=== PATIENT | female | born 1945 | race Caucasian/White ===

== ENCOUNTER 2024-09-29 14:56 | Emergency (ER) | payer MEDICARE, SELFPAY ==
[2024-09-29 15:10] VITALS: BP 113/72
--- NOTE | 2024-09-29 17:13 | ED.GENMED ---
History of Present Illness
General
Chief Complaint: Fall
Time Seen by Provider: 09/29/24 16:34
History of Present Illness
History of Present Illness:
79-year-old female presents to the emergency department after an unwitnessed fall. Was found by her roommate at approximately 6 AM on the ground. Patient does not recall any details that led to this fall. Arrives with a poorly dressed laceration
to the left forehead. She denies any acute pain at this time.
Review of Systems
Review of Systems
Allergies reviewed?: Yes
All Other Systems: ROS reviewed and negative except as documented in HPI and ROS
Phy Exam
Physical Exam
Physical Exam:
GEN: Well appearing, NAD, WDWN
Eyes: PERRLA, EOMs intact, no scleral icterus
HENT: 2 cm stellate laceration to the left forehead just above the eyebrow; oral mucosa moist, no JVD, no midline cervical spine tenderness.
Lungs: CTAB, no wheezes, rales, rhonchi, normal chest wall excursion
Cardiac: RRR, no M/R/G, no peripheral edema. Radial pulses 2+ bilat
Abdomen: S, NT, ND, NABS, no masses or hepatosplenomegaly
Neuro: AO x 3
MSK: No gross deformity or ecchymosis. No edema. Normal bilateral hip and knee range of motion with no reproduced pain, pelvis stable with no crepitus
Skin: No rashes, petechiae. Normal color, no pallor or jaundice.
Psych: Calm, cooperative, proper hygiene
Course
Orders/Labs/Results
Orders:
Orders
09/29/24 15:[address] [CT Head W/o Iv Contrast] Urgent
Comment:
Reason For Exam: +head strike
09/29/24 17:12
Straight cath- Treatment ONCE
09/29/24 17:24
Complete Blood Count/With Diff Urgent
Comprehensive Metabolic Panel Urgent
09/29/24 17:25
Urinalysis Reflex To Culture Urgent
Date Specimen was Collected: 09/29/24
Time Specimen was Collected: 17:25
Urine Microscopic Reflex Cult Urgent
Urine Culture Urgent
HILDA Source: U
Specimen Description:
Date Specimen was Collected: 09/29/24
Time Specimen was Collected: 17:25
09/29/24 18:16
Fosfomycin [Monurol] 3 gm PO ONCE ONE
09/29/24 18:23
Acetaminophen [Tylenol] 650 mg PO NOW STA
Abnormal Lab Results
09/29/24 09/29/24
17:24 17:25
RBC 3.48 L 10^6/uL
(4.20-5.40)
Hgb 11.6 L g/dL
(12.0-16.0)
Hct 34.2 L %
(37.0-47.0)
MCH 33.3 H pg
(27.0-31.0)
Monocytes % 9.4 H %
(1.7-9.3)
BUN 20 H mg/dl
(7-17)
Glucose 120 H mg/dl
(70-99)
AST 63 H U/L
(14-36)
ALT 55 H U/L
(0-35)
Total Protein 6.2 L g/dl
(6.3-8.2)
Albumin 3.4 L g/dl
(3.5-5.0)
Leukocyte Esterase Rfl 2+ A
(Negative)
Urine WBC (Reflex) 50-60 A /HPF
(0-5)
Urine Bacteria (Reflex) Many A
(Negative)
Urine Yeast Few A
(Negative)
Urine Glucose 3+ A
(Negative)
09/29/24 17:24
09/29/24 17:24
Vital Signs
Initial and Last Documented VS:
Initial Vital Signs
Temp Pulse Resp BP Pulse Ox
98.2 F 82 16 113/72 98
09/29/24 15:10 09/29/24 15:10 09/29/24 15:10 09/29/24 15:10 09/29/24 15:10
Last Documented Vital Signs
Temp Pulse Resp BP Pulse Ox
98.2 F 77 20 134/84 99
09/29/24 15:10 09/29/24 18:00 09/29/24 18:00 09/29/24 18:00 09/29/24 18:00
MDM/Problems Addressed
MDM/Problems Addressed:
Wound was cleansed and redressed with Steri-Strips. CT shows no acute traumatic injury as a result of her fall. Workup reveals suspected UTI which may have caused her fall, will be discharged back to her nursing facility after single dose of
fosfomycin
*Critical Care Note
Total Time (30-74mins, 75-104mins- exclusive of procedures): Not Applicable
ED Attending Note
-
Portions of this chart may have been created with voice recognition software.� Occasional wrong word or��sound alike� substitutions may have occurred due to the inherent limitations of voice recognition software.
Discharge Plan
Departure
Patient Disposition: Home (Routine Discharge)
Date of Disposition: 09/29/24
Time of Disposition: 18:22
Patient with high blood pressure during this ER visit?: No
Discharge Problem:
Unwitnessed fall, Forehead laceration, Urinary tract infection
Instructions: Head Injury in Adults (DC)
Referrals:
Sheldon Amin, [Family Provider] -
Interventions
Interventions:
*Risk Screen - Suicide Last Done: 09/29/24 15:10
*General Assessment Last Done: 09/29/24 17:00
*Neglect/Abuse Screening Last Done: 09/29/24 15:10
*ED COVID-19 Vaccine History Last Done: 09/29/24 17:00
*Nursing Disposition Last Done: 09/29/24 19:44
ED-Musculoskeletal Assessment Last Done: 09/29/24 17:00
ED- Neurological Assessment Last Done: 09/29/24 17:00
ED-Skin Assessment Last Done: 09/29/24 17:00
Discharge Date and Time
Discharge Date/Time: 09/29/24 19:45
Print Language: BULGARIAN
[2024-09-29 17:50] LABS: Urine Albumin Negative (Neg - Trace); Urine Bilirubin Negative (Negative); Urine Character Clear (Clear); Urine Color Yellow; Urine Glucose 3+ (Negative); Urine Ketone Negative (Negative); Urine Leukocyte 2+ (Negative); Urine Nitrite Negative (Negative); Urine Occult Blood Negative (Negative); Urine Specific Gravity 1.015 (<1.030); Urine Urobilinogen Negative (Neg - 1+)
[2024-09-29 17:50] LABS: % Eosinophils 1.6 % (0-6); % Immature Granulocytes 0.3 % (0-0.5); % Lymphocytes 21.5 % (20.5-51.1); % Monocytes 9.4 % (1.7-9.3); % Neutrophils 66.2 % (42.2-75.2); Absolute Basophils 0.1 10^3/uL (0-0.2); Absolute Eosinophils 0.1 10^3/uL (0-0.7); Absolute Lymphocytes 1.3 10^3/uL (1.2-3.4); Absolute Monocytes 0.6 10^3/uL (0.1-0.6); Hematocrit 34.2 % (37.0-47.0); Hemoglobin 11.6 g/dL (12.0-16.0); Mean Corp Hgb Conc. 33.9 g/dL (33.0-37.0); Mean Corpuscular Hgb 33.3 pg (27.0-31.0); Mean Corpuscular Volume 98.3 fL (81.0-99.0); Nucleated Red Blood Cells % 0 %; Platelet Count 324 10^3/uL (130-400); Red Blood Cell Count 3.48 10^6/uL (4.20-5.40); Red Cell Dist. Width 13.7 % (11.5-14.5); White Blood Cell Count 6.1 10^3/uL (4.8-10.8)
[2024-09-29 18:00] VITALS: BP 134/84
[2024-09-29 18:02] LABS: ALT (SGPT) 55 U/L (0-35); AST (SGOT) 63 U/L (14-36); Albumin 3.4 g/dl (3.5-5.0); Alkaline Phosphatase 64 U/L (38-126); Blood Urea Nitrogen 20 mg/dl (7-17); Calcium 9.1 mg/dl (8.4-10.2); Carbon Dioxide 22 mmol/L (22-30); Chloride 102 mmol/L (98-107); Glucose 120 mg/dl (70-99); Potassium 3.7 mmol/L (3.5-5.1); Sodium 137 mmol/L (135-145); Total Bilirubin 0.6 mg/dl (0.2-1.3); Total Protein 6.2 g/dl (6.3-8.2); eGFR > 60.00
[2024-09-29 18:02] LABS: Urine Squamous Cell 0-2 /LPF (Few)
[2024-09-29 18:03] LABS: Urine Bacteria Many (Negative); Urine Red Blood Cell 0-2 /HPF (0-2); Urine White Cell 50-60 /HPF (0-5); Urine Yeast Few (Negative)
[2024-09-29] MEDS: TYLENOL 650 MG PO (18:41)
[2024-09-29] MEDS: MONUROL 3 GM PO (18:42)
== END 2024-09-29 19:45 | disposition home or self-care (01) ==
LOC: EMR 14:56
PROVIDERS: Physician Assistant; EMERGENCY PHYSICIAN Emergency Medicine; FAMILY PHYSICIAN Family Medicine
DX: S01.81XA Laceration without foreign body of other part of head, initial encounter (principal); N39.0 Urinary tract infection, site not specified; W19.XXXA Unspecified fall, initial encounter
CPT/HCPCS: 99284; 70450; 80053; 81003; 81015; 85025; 87077; 87086

== ENCOUNTER 2024-11-03 02:50 | Inpatient (IN) | payer MEDICARE, SELFPAY ==
[2024-11-02 21:06] VITALS: BMI 29.9
--- NOTE | 2024-11-02 21:06 | ED.SKININJ ---
HPI-Injury
<Vickey Santizo PA-C - Last Filed: 11/04/24 16:10>
General
Chief Complaint: Skin Surface Trauma
Source: patient
Exam Limitations: none
Time Seen by Provider: 11/02/24 20:58
History of Present Illness-Injury
Initial Injury comments:
79-year-old female presents via EMS from group home facility. Patient was being transferred using a Lindsey lift and her leg got caught on an object. Facility noted a large laceration to the right lateral calf. She is on aspirin but no other
thinners. She has a history of cognitive dysfunction. She denies any pain.
Phy Exam
<Vickey Santizo PA-C - Last Filed: 11/04/24 16:10>
Physical Exam
Physical Exam:
General: Well-appearing female no acute respiratory distress
Skin: Large laceration lateral aspect right lower leg measuring about 10 cm. This is involving the skin and subcutaneous tissue. The muscle fascia is visible on the lateral aspect of the calf however the muscle fascia is not injured.
Neurologic: Alert and oriented to person only. Good sensation right leg
Musculoskeletal exam: No deformities. Good range of motion right knee and ankle
Course
<Vickey Santizo PA-C - Last Filed: 11/04/24 16:10>
Orders/Labs/Results
Orders:
Orders
11/02/24 22:15
CT Head W/o Iv Contrast Urgent
Comment:
Reason For Exam: change of mental status
Urinalysis Reflex To Culture Urgent
Date Specimen was Collected: 11/03/24
Time Specimen was Collected: 00:11
11/02/24 23:12
Complete Blood Count/With Diff Urgent
Comprehensive Metabolic Panel Urgent
NT-proBNP Urgent
TSH Reflex To Free T4 Urgent
Comment: ADD ON
11/03/24 00:13
Urine Microscopic Reflex Cult Urgent
Urine Culture Urgent
HILDA Source: U
Specimen Description:
Date Specimen was Collected: 11/03/24
Time Specimen was Collected: 00:11
11/03/24 01:14
Add On- LAB Urgent
Tests Added?: tsh reflex fT4
11/03/24 01:22
CefTRIAXone [Rocephin] 1,000 mg IV NOW STA
11/03/24 02:29
Admit/Transfer Patient As Directed
Co-Sign Provider:
Level of Care: Inpatient admission
Assign to:: Telemetry
Physician / Group: hospitalist
Diagnosis: failure to thrive
Reason for Telemetry: Other
Other Reason for Telemetry: h/o bradycardia
Date to Stop Telemetry: 11/05/24
Time to Stop Telemetry: 11:00
Reason for Hospitalization: failure to thrive
Expected length of stay greater than two midnights?: Yes
ELOS- Estimated Length of Stay in days: 2
I certify the patient meets the requirements for IP care: Yes
PRN Pain Medication Management As Directed
May give lesser potent ordered pain med per pt: Yes
preference::
Protocol:: Medication orders for pain may be administered in a
manner that supports deferring to patient preference
when the pt is:
- Requesting an ordered lesser potent pain medication.
Least to most potent pain medications are defined
as: acetaminophen < NSAID < tramadol < opioids
(morphine, oxycodone, hydromorphone).
- Requesting a lesser dose of the same medication IF
ORDERED.
- Requesting a less intrusive route of administration
if both routes are prescribed by the provider (PO <
IV).
11/03/24 02:30
Code Status As Directed
Resuscitation Status: Full Code
11/03/24 03:49
Acetaminophen [Tylenol] 650 mg PO Q4HPRN PRN
Bisacodyl [Dulcolax] 10 mg RECTAL [id number] PRN
Docusate W/Senna [Senokot-S] 1 tablet PO BIDPRN PRN
Lactated Ringers [Lr] 500 ml IV 100 mls/hr
Ondansetron Injectable [Zofran] 4 mg IV Q6HPRN PRN
Polyethylene Glycol Powder [Miralax] 17 grams PO DAILYPRN PRN
11/03/24 03:49
Case Management Consult ONCE
Case Management Consult: Discharge Planning
MRI Brain [MR Brain Without Contrast] Routine
Comment:
Reason For Exam: altered mental status
Recent pill cam endoscopy?: No
Activity As Directed
Activity Level: With Assistance
Vital Signs As Directed
Frequency: Per unit guidelines
Pulse Ox/spot Check [RESP] Routine
Quantity: 1
DX Deep Vein Thrombosis Video Routine
11/03/24 Breakfast
IDDSI 4 - Pureed
At Your Request: Non-Participating
Levothyroxine [Synthroid] 50 mcg PO DAILY @ 0600
11/03/24 06:21
Ammonia IN AM
Basic Metabolic Panel IN AM
CRP [C-Reactive Protein] IN AM
Complete Blood Count/No Diff IN AM
ESR [Erythrocyte Sed Rate] IN AM
Magnesium IN AM
RPR [Syphilis/T. pallidum Ab Reflex] IN AM
Vitamin B12 IN AM
11/03/24 08:00
Aspirin Chewable [Low Strength Aspirin] 81 mg PO DAILY
Citalopram [Celexa] 20 mg PO DAILY
Famotidine [Pepcid] 40 mg PO DAILY
Megestrol [Megace Oral Suspension] 800 mg PO DAILY
Miconazole Nitrate [Desenex/Mitrazol/Zeasorb] See Dose Instructions TOPICAL BID
11/03/24 18:00
Atorvastatin [Lipitor] 10 mg PO QPM
Enoxaparin Sodium [Lovenox] 40 mg SC QPM
Latanoprost [Xalatan Ophthalmic Solution] See Dose Instructions OPHTH QPM
11/04/24 02:00
CefTRIAXone [Rocephin] 1,000 mg IV Q24H
11/05/24 11:00
DC Protocol for Telemetry ONCE
Abnormal Lab Results
11/02/24 11/03/24
23:12 00:13
WBC 11.1 H 10^3/uL
(4.8-10.8)
RBC 3.65 L 10^6/uL
(4.20-5.40)
Hct 36.1 L %
(37.0-47.0)
MCH 32.9 H pg
(27.0-31.0)
Absolute Neuts (auto) 9.0 H 10^3/uL
(1.4-6.5)
Absolute Lymphs (auto) 1.1 L 10^3/uL
(1.2-3.4)
Absolute Monos (auto) 0.9 H 10^3/uL
(0.1-0.6)
Neutrophils % 81.4 H %
(42.2-75.2)
Lymphocytes % 9.6 L %
(20.5-51.1)
Sodium 133 L mmol/L
(135-145)
BUN 19 H mg/dl
(7-17)
Glucose 120 H mg/dl
(70-99)
Total Bilirubin 1.6 H mg/dl
(0.2-1.3)
Albumin 3.4 L g/dl
(3.5-5.0)
Urine Nitrite (Reflex) Positive A
(Negative)
Urine Bilirubin 1+ A
(Negative)
Leukocyte Esterase Rfl 1+ A
(Negative)
Urine WBC (Reflex) 60-70 A /HPF
(0-5)
Urine Bacteria (Reflex) Many A
(Negative)
Urine Glucose 3+ A
(Negative)
11/02/24 23:12
11/02/24 23:12
Vital Signs
Initial and Last Documented VS:
Initial Vital Signs
Temp Pulse Resp BP Pulse Ox
99.5 F 71 22 108/47 97
11/02/24 21:07 11/02/24 21:07 11/02/24 21:07 11/02/24 21:07 11/02/24 21:07
Last Documented Vital Signs
Temp Pulse Resp BP Pulse Ox
98.0 F 82 20 149/68 94
11/04/24 11:00 11/04/24 11:00 11/04/24 11:00 11/04/24 11:00 11/04/24 11:00
<Ubaldo Morelos, DO - Last Filed: 11/04/24 15:39>
Orders/Labs/Results
Orders:
Orders
11/02/24 22:15
CT Head W/o Iv Contrast Urgent
Comment:
Reason For Exam: change of mental status
Urinalysis Reflex To Culture Urgent
Date Specimen was Collected: 11/03/24
Time Specimen was Collected: 00:11
11/02/24 23:12
Complete Blood Count/With Diff Urgent
Comprehensive Metabolic Panel Urgent
NT-proBNP Urgent
TSH Reflex To Free T4 Urgent
Comment: ADD ON
11/03/24 00:13
Urine Microscopic Reflex Cult Urgent
Urine Culture Urgent
HILDA Source: U
Specimen Description:
Date Specimen was Collected: 11/03/24
Time Specimen was Collected: 00:11
11/03/24 01:14
Add On- LAB Urgent
Tests Added?: tsh reflex fT4
11/03/24 01:22
CefTRIAXone [Rocephin] 1,000 mg IV NOW STA
11/03/24 02:29
Admit/Transfer Patient As Directed
Co-Sign Provider:
Level of Care: Inpatient admission
Assign to:: Telemetry
Physician / Group: hospitalist
Diagnosis: failure to thrive
Reason for Telemetry: Other
Other Reason for Telemetry: h/o bradycardia
Date to Stop Telemetry: 11/05/24
Time to Stop Telemetry: 11:00
Reason for Hospitalization: failure to thrive
Expected length of stay greater than two midnights?: Yes
ELOS- Estimated Length of Stay in days: 2
I certify the patient meets the requirements for IP care: Yes
PRN Pain Medication Management As Directed
May give lesser potent ordered pain med per pt: Yes
preference::
Protocol:: Medication orders for pain may be administered in a
manner that supports deferring to patient preference
when the pt is:
- Requesting an ordered lesser potent pain medication.
Least to most potent pain medications are defined
as: acetaminophen < NSAID < tramadol < opioids
(morphine, oxycodone, hydromorphone).
- Requesting a lesser dose of the same medication IF
ORDERED.
- Requesting a less intrusive route of administration
if both routes are prescribed by the provider (PO <
IV).
11/03/24 02:30
Code Status As Directed
Resuscitation Status: Full Code
11/03/24 03:49
Acetaminophen [Tylenol] 650 mg PO Q4HPRN PRN
Bisacodyl [Dulcolax] 10 mg RECTAL [id number] PRN
Docusate W/Senna [Senokot-S] 1 tablet PO BIDPRN PRN
Lactated Ringers [Lr] 500 ml IV 100 mls/hr
Ondansetron Injectable [Zofran] 4 mg IV Q6HPRN PRN
Polyethylene Glycol Powder [Miralax] 17 grams PO DAILYPRN PRN
11/03/24 03:49
Case Management Consult ONCE
Case Management Consult: Discharge Planning
MRI Brain [MR Brain Without Contrast] Routine
Comment:
Reason For Exam: altered mental status
Recent pill cam endoscopy?: No
Activity As Directed
Activity Level: With Assistance
Vital Signs As Directed
Frequency: Per unit guidelines
Pulse Ox/spot Check [RESP] Routine
Quantity: 1
DX Deep Vein Thrombosis Video Routine
11/03/24 Breakfast
IDDSI 4 - Pureed
At Your Request: Non-Participating
Levothyroxine [Synthroid] 50 mcg PO DAILY @ 0600
11/03/24 06:21
Ammonia IN AM
Basic Metabolic Panel IN AM
CRP [C-Reactive Protein] IN AM
Complete Blood Count/No Diff IN AM
ESR [Erythrocyte Sed Rate] IN AM
Magnesium IN AM
RPR [Syphilis/T. pallidum Ab Reflex] IN AM
Vitamin B12 IN AM
11/03/24 08:00
Aspirin Chewable [Low Strength Aspirin] 81 mg PO DAILY
Citalopram [Celexa] 20 mg PO DAILY
Famotidine [Pepcid] 40 mg PO DAILY
Megestrol [Megace Oral Suspension] 800 mg PO DAILY
Miconazole Nitrate [Desenex/Mitrazol/Zeasorb] See Dose Instructions TOPICAL BID
11/03/24 18:00
Atorvastatin [Lipitor] 10 mg PO QPM
Enoxaparin Sodium [Lovenox] 40 mg SC QPM
Latanoprost [Xalatan Ophthalmic Solution] See Dose Instructions OPHTH QPM
11/04/24 02:00
CefTRIAXone [Rocephin] 1,000 mg IV Q24H
11/05/24 11:00
DC Protocol for Telemetry ONCE
Abnormal Lab Results
11/02/24 11/03/24
23:12 00:13
WBC 11.1 H 10^3/uL
(4.8-10.8)
RBC 3.65 L 10^6/uL
(4.20-5.40)
Hct 36.1 L %
(37.0-47.0)
MCH 32.9 H pg
(27.0-31.0)
Absolute Neuts (auto) 9.0 H 10^3/uL
(1.4-6.5)
Absolute Lymphs (auto) 1.1 L 10^3/uL
(1.2-3.4)
Absolute Monos (auto) 0.9 H 10^3/uL
(0.1-0.6)
Neutrophils % 81.4 H %
(42.2-75.2)
Lymphocytes % 9.6 L %
(20.5-51.1)
Sodium 133 L mmol/L
(135-145)
BUN 19 H mg/dl
(7-17)
Glucose 120 H mg/dl
(70-99)
Total Bilirubin 1.6 H mg/dl
(0.2-1.3)
Albumin 3.4 L g/dl
(3.5-5.0)
Urine Nitrite (Reflex) Positive A
(Negative)
Urine Bilirubin 1+ A
(Negative)
Leukocyte Esterase Rfl 1+ A
(Negative)
Urine WBC (Reflex) 60-70 A /HPF
(0-5)
Urine Bacteria (Reflex) Many A
(Negative)
Urine Glucose 3+ A
(Negative)
11/02/24 23:12
11/02/24 23:12
Vital Signs
Initial and Last Documented VS:
Initial Vital Signs
Temp Pulse Resp BP Pulse Ox
99.5 F 71 22 108/47 97
11/02/24 21:07 11/02/24 21:07 11/02/24 21:07 11/02/24 21:07 11/02/24 21:07
Last Documented Vital Signs
Temp Pulse Resp BP Pulse Ox
98.0 F 82 20 149/68 94
11/04/24 11:00 11/04/24 11:00 11/04/24 11:00 11/04/24 11:00 11/04/24 11:00
<Vickey Santizo PA-C - Last Filed: 11/04/24 16:10>
MDM/Problems Addressed
Differential Diagnosis Includes:
Large laceration right lateral leg. Skin is thin in this area however will attempt to provide suture closure secondary to the size of the wound and depth of the wound.
<Vickey Santizo PA-C - Last Filed: 11/04/24 16:10>
*Critical Care Note
Total Time (30-74mins, 75-104mins- exclusive of procedures): Not Applicable
<Vickey Santizo PA-C - Last Filed: 11/04/24 16:10>
Update Note
Update Note:
Daughter now in the room. Daughter is concerned that she is not herself. She has had a change in mental status that is progressively gotten worse over the past couple months. There was also report of a fall within the last day or 2. Daughter
felt a bump on the back of her head. There is no obvious signs of trauma on my exam but CT of the head was ordered. Will order labs and as well as urinalysis.
The wound was copiously irrigated with saline solution and dried and held in approximation with 4-0 Prolene sutures performed in a running fashion. 1 Steri-Strip was used to approximate the corner of the wound as well. Sterile dry dressing was
applied patient signed out care to emergency room attending pending urinalysis. Daughter was in the room and states that she was not herself and has been confused concern for urinary tract infection
ED Attending Note
<Vickey Santizo PA-C - Last Filed: 11/04/24 16:10>
-
Portions of this chart may have been created with voice recognition software.� Occasional wrong word or��sound alike� substitutions may have occurred due to the inherent limitations of voice recognition software.
<Ubaldo Morelos DO - Last Filed: 11/04/24 15:39>
ED Attending Note
Patient seen and examined by attending physician: Yes
I performed the substantive portion of visit, reviewed & personally made and approve the management plan that is documented in note by myself or SHAMEKA.: Yes
ED Attending Note:
I evaluated the patient at bedside. The patient appears lethargic/sleeping. Urinalysis suggest urinary tract infection. CT head unremarkable. Laceration was repaired earlier. Minimal leukocytosis noted. Blood pressure is borderline low at
times. Had long conversation with daughter at bedside. Daughter is very concerned about her overall functional decline which has been rather rapid. Daughter reports no neurologic evaluation has been performed.
Discharge Plan
Departure
Patient Disposition: Admit
Date of Disposition: 11/03/24
Time of Disposition: 01:24
Presentation/result/management discussed w/ accepting MD/DO: Hospitalist
Patient with high blood pressure during this ER visit?: No
Discharge Problem:
Adult failure to thrive
Interventions
Interventions:
*Risk Screen - Suicide Last Done: 11/03/24 16:02
*General Assessment Last Done: 11/02/24 21:07
*Neglect/Abuse Screening Last Done: 11/02/24 21:07
ED- Fall Risk Assessment Last Done: 11/03/24 07:25
*ED COVID-19 Vaccine History Last Done: 11/03/24 16:02
*Nursing Disposition Last Done: 11/03/24 15:30
ED-Skin Assessment Last Done: 11/02/24 21:15
Discharge Date and Time
Discharge Date/Time: 11/03/24 15:30
[2024-11-02 21:07] VITALS: BP 108/47
[2024-11-02 23:20] LABS: % Basophils 0.5 % (0-2); % Eosinophils 0.5 % (0-6); % Immature Granulocytes 0.3 % (0-0.5); % Lymphocytes 9.6 % (20.5-51.1); % Monocytes 7.7 % (1.7-9.3); % Neutrophils 81.4 % (42.2-75.2); Absolute Basophils 0.1 10^3/uL (0-0.2); Absolute Eosinophils 0.1 10^3/uL (0-0.7); Absolute Lymphocytes 1.1 10^3/uL (1.2-3.4); Absolute Monocytes 0.9 10^3/uL (0.1-0.6); Hematocrit 36.1 % (37.0-47.0); Mean Corp Hgb Conc. 33.2 g/dL (33.0-37.0); Mean Corpuscular Hgb 32.9 pg (27.0-31.0); Mean Corpuscular Volume 98.9 fL (81.0-99.0); Mean Platelet Volume 9.3 fL (7.4-10.4); Nucleated Red Blood Cells % 0 %; Platelet Count 215 10^3/uL (130-400); Red Blood Cell Count 3.65 10^6/uL (4.20-5.40); Red Cell Dist. Width 14.4 % (11.5-14.5); White Blood Cell Count 11.1 10^3/uL (4.8-10.8)
[2024-11-02 23:41] LABS: ALT (SGPT) 24 U/L (0-35); AST (SGOT) 28 U/L (14-36); Albumin 3.4 g/dl (3.5-5.0); Alkaline Phosphatase 96 U/L (38-126); Blood Urea Nitrogen 19 mg/dl (7-17); Calcium 9.1 mg/dl (8.4-10.2); Carbon Dioxide 22 mmol/L (22-30); Chloride 101 mmol/L (98-107); Estimated Creatinine Clearance 45 ml/min; Glucose 120 mg/dl (70-99); Potassium 4.2 mmol/L (3.5-5.1); Sodium 133 mmol/L (135-145); Total Bilirubin 1.6 mg/dl (0.2-1.3); Total Protein 6.4 g/dl (6.3-8.2); eGFR 57.66
[2024-11-02 23:42] LABS: NT-proBNP 3440 pg/ml
[2024-11-03] VITALS (10 sets, daily range): BP systolic 115–152; BP diastolic 33–64; BMI 27.1
[2024-11-03 00:36] LABS: Urine Albumin Trace (Neg - Trace); Urine Bilirubin 1+ (Negative); Urine Character Slightly Cloudy (Clear); Urine Color Yellow; Urine Glucose 3+ (Negative); Urine Ketone Negative (Negative); Urine Leukocyte 1+ (Negative); Urine Nitrite Positive (Negative); Urine Occult Blood Negative (Negative); Urine Urobilinogen 1+ (Neg - 1+)
[2024-11-03 02:05] LABS: Urine Bacteria Many (Negative); Urine Red Blood Cell 0-2 /HPF (0-2); Urine Squamous Cell >30 /LPF (Few); Urine White Cell 60-70 /HPF (0-5)
--- NOTE | 2024-11-03 02:06 | HPS.HSE ---
Family Physician
-
Family Physician: Jamin Velasquez, DO
Chief Complaint
-
Recurrent falls with right lower extremity laceration status post DTs, subacute decline in health status
History of Present Illness
This is a 79-year-old female with past medical history that is significant for congestive heart failure, hypertension, GERD, CKD, diabetes, hypothyroid, chronic pain, prior history of pulmonary embolism, increasing dysphagia and adult failure to
thrive presenting to the emergency department following a fall at the custodial.
Patient was seen in the emergency department in early September for similar fall where she had a laceration to the forehead. She is now here again with a fall with laceration to the right knee. He is severely concerned about declining health status
and the ability of the custodial to care for her.
History obtained from daughter. Patient has a decline since June. In early June she apparently had an episode of bradycardia. She was taken to the hospital and found to be bradycardic to the 30s. At that time she declined a pacemaker.
She was monitored and ultimately discharged without any specific interventions noted by daughter. Unclear what he was on beta-blockade at that time. Since then the patient has been battling severe CAD. She was at home with diarrhea for several
weeks until family noticed that decline brought her to the operations recruiter. The operations recruiter then referred for hospitalization. Patient was hospitalized for several weeks with C. difficile mediated sepsis without shock. She was treated
with antibiotics and ultimately discharged to rehab. At the time of discharge the patient had declined so significantly she was unable to ambulate herself and was wheelchair dependent. Over the next few weeks the patient continued to decline with
preparation for monitoring and care at the facility where she is currently at. She is now barely able to eat. She is immobile and essentially wheelchair dependent. She was not interactive or communicative with me. Reports that at baseline she is
able to say her name and the year but this is unclear to me. Daughter felt that the patient foul-smelling urine and possibly UTI since yesterday. She had sleep from wheelchair and had a laceration on the back. Otherwise she had no acute focal
neurological deficits. Medication list reviewed.
In the emergency department patient had extensive sutures on the laceration on the right lower extremity. She barely felt any discomfort. Even when she had the following laceration she never complained to the staff of pain. She has been found
swelling herself and being treated actually by staff. She has had to get infusions of electrolytes in the past.
In the ED today she was normotensive with a blood pressure of 130/50, pulse was 60, she was afebrile and satting 97% on room air. CBC was unremarkable. Electrolytes notable for a sodium of 133, bicarb was 22 BUN 19 and creatinine 1.0. LFTs were
unremarkable. UA shows positive nitrite leukocyte esterase, white cells and bacteria but also squamous cells. CT of the head was unremarkable.
Medical History
Past Medical History
Past Medical History: Reports CAD, CHF, HTN, Hypercholesterolemia, NIDDM and Psychiatric (Generalized anxiety)
Additional Past Medical History:
CKD
Past Surgical History: Reports Other
Social History
Tobacco: Non-smoker
Alcohol: None
Drug: None
Personal: Single
Living: Alf
Employment: Retired
Family History
Family History: Not pertinent
Allergies / Home Medications
Allergies reflects when Allergies were last updated in [employer].
Home Medications with original date entered in [employer]
Allergy/Medication List:
Allergies
Allergy/AdvReac Type Severity Reaction Status Date / Time
penicillin V Allergy Hives Verified 11/02/24 21:14
Sulfa (Sulfonamide Allergy Itching Verified 11/02/24 21:14
Antibiotics)
Review of Systems
-
Unable to obtain full review of systems at this time due to: Patient Non-verbal
Physical Exam
Vital Signs
Vital Signs
Temp Pulse Resp BP Pulse Ox
99.5 F 61 22 129/47 97
11/02/24 21:07 11/03/24 00:30 11/02/24 21:07 11/03/24 00:00 11/03/24 00:30
Physical Exam
General: No Apparent Distress and Other (somnolent)
HEENT: NormoCephalic, Anicteric, Moist mucous membranes, PERRLA and Neck Nontender
Respiratory: Clear
Cardiac: S1/S2 and Bradycardia
Breast: Deferred by me
GI: Soft, Non Tender, Non Distended and Normal Bowel Sounds
Rectal: Deferred by Provider
Genito-urinary: Deferred by me
Musculoskeletal: No Clubbing, No Cyanosis and No Edema
Skin: Warm
Neuro: Other (somnolent, arousable to voice and speaks one word responses. GCS = 9)
Hematologic/Lymphatic: No Lymphadenopathy
Laboratory Results
-
11/02/24 23:12
11/02/24 23:12
Laboratory Results
Total Bilirubin 1.6 mg/dl (0.2-1.3) H 11/02/24 23:12
AST 28 U/L (14-36) 11/02/24 23:12
ALT 24 U/L (0-35) 11/02/24 23:12
Alkaline Phosphatase 96 U/L (38-126) 11/02/24 23:12
Data Reviewed
-
CT Scan: Report Reviewed by me
Lab Data: Labs Reviewed by me
Old Records: Reviewed
Impression/Plan
-
IMPRESSION:
Patient brought in to the emergency department due to suffering a fall and laceration to the right lower extremity. She was already wheelchair-bound at a setting of this fall. It appears she slipped off of the wheelchair when this happened.
Patient herself cannot give any history of the fall. Does not appear she had an alteration in her mental status acutely. She had a similar fall several weeks ago in September and she was seen here with a laceration to her forehead. She had been
sutured in the ED. However daughter is very concerned about care at the custodial/rehab facility. For me the patient was extremely somnolent possibly encephalopathic for unclear etiology. CT of the head shows no acute stroke or bleed. Adrenal
mass. She was moving all 4 spontaneously but very sluggishly. She has possibility of a UTI but no evidence of severe sepsis. Electrolytes not particularly concerning. CBC also mostly within normal limits. LFTs were mostly within normal limits.
No joint skin or bone infection present. She appears to have been declining for several weeks now which will be subacute toxic metabolic encephalopathy or psychiatric.
PLAN:
1. Encephalopathy - Unlikely dementia given recent history of normal mental status in June. ?UTI but no bo sepsis. On sedating medications. She looks euvolemic to me with normal electrolytes. Elevated BNP but no clinical signs of CHF.
- admit to telemetry
- tsh pending
- urine cultures
- start ceftriaxone iv for now
- some gentle hydration
- hold gabentin, oxycodone, lorazepam for now
- mri in am
- esr/crp, b12, rpr, ammonia level in am
- consider eeg
- PT eval, case management consult.
2. UTI
- treatment as above
3. R knee laceration -
- monitor for dehiscence or infection
4. CAD/CHF - euvolemic.
- continue aspirin statin for now
- no diuretics
5. Bradycardia - history of symptomatic bradycardia to 35 in june. No heart block on monitor and currently 55-60
- ECG
- tele
- no blockers
- decline ppm in the past and family want to follow her then wishes
6. DM II
- hold farxiga
- insulin sliding scale for now
Diet pureed diet, awaiting mouth plates
DVT PPX - lovenox sq
Code status - -full code. Discussed the issues around dealing with symptomatic bradycardia if ppm is avoided. Given rapidity of decline undertandable that family wants to remain full code
[2024-11-03] MEDS: ROCEPHIN 1000 MG IV (02:12)
[2024-11-03 02:37] LABS: TSH Reflex To Free T4 1.66 uIU/ml (0.47-4.68)
[2024-11-03] MEDS: LR 500 IV (05:32)
[2024-11-03] MEDS: SYNTHROID 50 MCG PO (06:17)
[2024-11-03 06:44] LABS: Hematocrit 33.6 % (37.0-47.0); Mean Corp Hgb Conc. 32.7 g/dL (33.0-37.0); Mean Corpuscular Hgb 33.4 pg (27.0-31.0); Mean Corpuscular Volume 102.1 fL (81.0-99.0); Mean Platelet Volume 9.4 fL (7.4-10.4); Platelet Count 207 10^3/uL (130-400); Red Blood Cell Count 3.29 10^6/uL (4.20-5.40); Red Cell Dist. Width 14.6 % (11.5-14.5); White Blood Cell Count 8.2 10^3/uL (4.8-10.8)
[2024-11-03 06:47] LABS: Ammonia < 9 umol/L (9-30); Blood Urea Nitrogen 19 mg/dl (7-17); Calcium 8.6 mg/dl (8.4-10.2); Carbon Dioxide 23 mmol/L (22-30); Chloride 105 mmol/L (98-107); Estimated Creatinine Clearance 57 ml/min; Glucose 95 mg/dl (70-99); Magnesium 1.5 mg/dl (1.6-2.3); Potassium 4.1 mmol/L (3.5-5.1); Sodium 135 mmol/L (135-145); eGFR > 60.00
[2024-11-03 07:36] LABS: Vitamin B12 236 pg/ml (239-931)
[2024-11-03] MEDS: LOW STRENGTH ASPIRIN 81 MG PO (08:22)
[2024-11-03] MEDS: PEPCID 40 MG PO (08:23)
[2024-11-03] MEDS: DESENEX/MITRAZOL/ZEASORB 1 APPLIC TOPICAL ×2 (08:24→20:15)
[2024-11-03] MEDS: MEGACE ORAL SUSPENSION 800 MG PO (08:24)
[2024-11-03] MEDS: CELEXA 20 MG PO (08:32)
[2024-11-03 08:45] LABS: Erythrocyte Sed Rate 19 mm/hour (0-20)
--- NOTE | 2024-11-03 15:00 | W.PN.UPDATE ---
Update Note
Progress Note Update
Seen by Dr Castellano
Admitted due to rapid decline in cognitive ability and frequent falls. Neurological evaluation initiated. Await MRI of the brain. Consult neurology.
Discussed with daughter at bedside.
[2024-11-03] MEDS: LOVENOX 40 MG SC (17:11)
[2024-11-03] MEDS: LIPITOR 10 MG PO (17:12)
[2024-11-03] MEDS: CYANOCOBALAMIN 1000 MCG IM (17:12)
[2024-11-03] MEDS: XALATAN OPHTHALMIC SOLUTION 1 DROP OPHTH (18:36)
[2024-11-03 21:00] LABS: HDL Cholesterol 35 mg/dl; LDL Cholesterol, Calculated 48 mg/dl; Total Cholesterol 96 mg/dl (50-199); Triglyceride 66 mg/dl (10-149); Very Low Density Lipoprotein 13 mg/dl (0-30)
[2024-11-04] MEDS: ROCEPHIN 1000 MG IV (02:12)
[2024-11-04] MEDS: STERILE WATER FOR INJECTION 10 ML IV (02:13)
[2024-11-04] MEDS: ULTRAM 50 MG PO (02:17)
[2024-11-04 03:30] VITALS: BP 137/61
[2024-11-04] MEDS: SYNTHROID 50 MCG PO (05:50)
[2024-11-04 10:21] VITALS: BMI 27.1
--- NOTE | 2024-11-04 10:48 | CON.NEURO ---
Consultation
Order
Date of Consultation: 11/04/24
Requesting Provider: Harry Acosta MD
Reason for Consult: Rapid decline in cognition and frequent falls
Neurology Consultation Note.
HPI: This is a 79-year-old woman who presented to [facility] from [facility] on 11/02/2024 with skin tear, hemorrhage. Neurology consultation was requested for an evaluation and management of cognitive decline and
ambulatory dysfunction. The patient is unable to provide history.
According to EMS report the patient sustained a large right calf skin tear with associated bleeding during the transfer.
ER VS: 129/47, 71-55, afebrile
EKG: Sinus bradycardia, QTc Int : 491 ms
PDMP:Oxycodone-Acetaminophen 5-325 25 tabs filled in on 09/25/2025, 28 tabs on 09/12/2024, 60 tabs on 08/28/2024.
Lorazepam 0.5 Mg 13 tablets filled in on 09/12/2024. Trazodone 50 Mg filled in on 09/12/2024,
Labs: WBC�11.11, sodium�133, glucose�120, total bili�1.6, ammonia level<9, CRP�33.8, proBNP 3440, UA�positive for nitrates, leukocyte esterase, WBCs, bacteria, glucose, vitamin B12�236, TSH�normal
CT head wo contrast�generalized atrophy
Brain MRI wo mark(11/03/2024)-acute multifocal R Rahat/LSA/L BRIM MOLDER infarcts.
According to patient's daughter, Ms. Francis has had decline in her cognitive and physical abilities over the past several months. She had diarrhea and C. diff over the summer, which continued until June. She was hospitalized at [facility] [place] in [place], [place], on July 24 due to a heart rate of 35 and was recommended a pacemaker, which she declined.
The patient has a history of multiple falls, with the first one occurring in June when she lived alone. She started using a walker in August when she was at [facility]. She has lost about 30 pounds over the last year, with
significant loss in the past few weeks.
The patient's cognition and memory have declined rapidly over the last six months. She was active in the summer but became confused, mistaking people for her fianc� and mother. This confusion occurred in rehab without active medical issues.
She refers to her daughter reportedly in the third person. The patient has not had known hallucinations.
The patient is currently unable to feed herself, needing help for about a week and a half due to pocketing food. She last dressed herself in June when she lived on her own.
Ms. Francis was reportedly able to hold conversation with her doctor yesterday. Her sisters and family reportedly requested psychiatric evaluation due to 'breakdown' over the last several months
PMH: SSS, cardiomyopathy(soince mid 40s), CAD, PAD, CHF, HTN, DLP, hypothyroidism, h/o CDif, SSS?, ambulatory dysfunction, glaucoma
PSH: SHAYY, bladder lift, cholecystectomy, BL cataract removal,
SH: single, Resident at [facility], former smoker; used to be a personal computer network analyst at [employer];
FH:fatherrr in his 50s, had heart issues, mother-brain aneurysm
All: Sulfas, penicillin,
ROS: Unable
General: Well developed. In no acute distress.
Cardio: Regular rate and rhythm without murmur. Extremities are without cyanosis or edema.
Neuro:
Mental Status: Alert, attends to examiner. Follows simple requests intermittently. Oriented to name only. No verbal output. No hemineglect.
Cranial Nerves: Pupils are equally round and reactive to light. Horizontal EOMs full. Blinks to threat bilaterally. No facial weakness. Hearing is preserved.
Motor: Increased motor tone in upper and lower extremities. With minimal movements in bed plane.
Reflexes: Limited exam due to increased motor tone.
Sensory: Unable to obtain due to poor attention
Coordination: No tremors myoclonic movements
Gait: deferred
Assessment and Plan:
I. Acute bihemispheric strokes, likely etiology�embolic
II. Vitamin B12 deficiency
III. Prolonged QTc
-Continue Telemetry monitoring.
-Fall precautions
-TTE with bubble studies
-ASA 81 mg QD indefinitely
-Plavix 75 mg QD for 21 days.
-Lipitor 40 mg QHS.
-PT.
-Start parenteral cyanocobalamin
-DVT prophylaxis.
I personally reviewed all radiology and labs along with past medical records pertinent to current medical problems. Total time spent in patient care is 60 minutes.
Thank you for allowing us to participate in the care of this patient. We will continue to follow. Please do not hesitate to contact us with any questions or concerns
Subjective/Objective
Subjective Data
Date of Service: November 04, 2024
Objective Data
Vital Signs
Temp Pulse Resp BP Pulse Ox
36.3 C 75 14 137/61 97
11/04/24 03:30 11/04/24 03:30 11/04/24 03:30 11/04/24 03:30 11/04/24 03:30
Lab Results
11/03/24 06:21
11/03/24 06:21
Sodium 135 mmol/L (135-145) 11/03/24 06:21
Potassium 4.1 mmol/L (3.5-5.1) 11/03/24 06:21
BUN 19 mg/dl (7-17) H 11/03/24 06:21
Glucose 95 mg/dl (70-99) 11/03/24 06:21
Calcium 8.6 mg/dl (8.4-10.2) 11/03/24 06:21
Nkx-E-Mjsiohhcgiv Pept 3440 pg/ml 11/02/24 23:12
LDL Cholesterol, Calc Cancelled 11/03/24 15:49
Vitamin B12 236 pg/ml (239-931) L 11/03/24 06:21
Patient Allergies
penicillin V Allergy (Verified 11/02/24 21:14)
Hives
Sulfa (Sulfonamide Antibiotics) Allergy (Verified 11/02/24 21:14)
Itching
Medications
-
Active Medications
Generic Name Dose Route Start Last Admin
Trade Name Freq PRN Reason Stop Dose Admin
Acetaminophen 650 mg 11/03/24 03:49
Acetaminophen 325 Mg Tablet PO 12/01/24 03:48
Q4HPRN PRN
mild pain/DICKINSON/temp> 100.4F
Aspirin 81 mg 11/03/24 08:00 11/03/24 08:22
Aspirin 81 Mg Chewable Tablet PO 12/01/24 07:59 81 mg
DAILY KIRTI Administration
Atorvastatin Calcium 10 mg 11/03/24 18:00 11/03/24 17:12
Atorvastatin (Lipitor) 10 Mg Tablet PO 12/01/24 17:59 10 mg
QPM KIRTI Administration
Bisacodyl 10 mg 11/03/24 03:49
Bisacodyl 10 Mg Rectal Suppository RECTAL 12/01/24 03:48
[id number] PRN
constipation
Ceftriaxone Sodium 1,000 mg 11/04/24 02:00 11/04/24 02:12
Ceftriaxone 1000 Mg / 10 Ml Vial IV 1,000 mg
Q24H KIRTI Administration
Citalopram Hydrobromide 20 mg 11/03/24 08:00 11/03/24 08:32
Citalopram 20 Mg Tablet PO 12/01/24 07:59 20 mg
DAILY KIRTI Administration
Cyanocobalamin 1,000 mcg 11/03/24 16:00 11/03/24 17:12
Cyanocobalamin (1000 Mcg/Ml) 1 Ml Vial IM 12/01/24 15:59 1,000 mcg
DAILY KIRTI Administration
Enoxaparin Sodium 40 mg 11/03/24 18:00 11/03/24 17:11
Enoxaparin Sodium 40 Mg/0.4 Ml Syringe SC 12/01/24 17:59 40 mg
QPM KIRTI Administration
Famotidine 40 mg 11/03/24 08:00 11/03/24 08:23
Famotidine 40 Mg Tablet PO 12/01/24 07:59 40 mg
DAILY KIRTI Administration
Latanoprost 0 drop 11/03/24 18:00 11/03/24 18:36
Latanoprost 0.005% (Ophthalmic Solution) 2.5 Ml Bottle OPHTH 12/01/24 17:59 1 drop
QPM KIRTI Administration
Levothyroxine Sodium 50 mcg 11/03/24 06:00 11/04/24 05:50
Levothyroxine 50 Mcg Tablet PO 12/01/24 05:59 50 mcg
DAILY @ 0600 KIRTI Administration
Megestrol Acetate 800 mg 11/03/24 08:00 11/03/24 08:24
Megestrol Oral Suspension (400 Mg/10 Ml) Cup PO 12/01/24 07:59 800 mg
DAILY KIRTI Administration
Miconazole Nitrate 0 applic 11/03/24 08:00 11/03/24 20:15
Miconazole Powder Bottle TOPICAL 12/01/24 07:59 1 applic
BID KIRTI Administration
Ondansetron HCl 4 mg 11/03/24 03:49
Ondansetron 4 Mg/2 Ml Vial IV 12/01/24 03:48
Q6HPRN PRN
nausea and vomiting
Polyethylene Glycol 17 grams 11/03/24 03:49
Polyethylene Glycol Powder 17 Grams Packet PO 12/01/24 03:48
DAILYPRN PRN
constipation
Senna/Docusate Sodium 1 tablet 11/03/24 03:49
Docusate W/Senna (Kasey-Colace) Tablet PO 12/01/24 03:48
BIDPRN PRN
constipation
Sodium Chloride 0 flush 11/04/24 01:30 11/04/24 04:20
0.9% Nacl Flush If Lactated Ringers Ivf Ordered IV 12/02/24 01:29 Not Given
0130,0230 KIRTI
Sterile Water 10 ml 11/04/24 02:00 11/04/24 02:13
Sterile Water For Injection 10 Ml Vial IV 12/02/24 01:59 10 ml
Q24H KIRTI Administration
Tramadol HCl 50 mg 11/03/24 18:38 11/04/24 02:17
Tramadol Hcl 50 Mg Tablet PO 12/01/24 18:37 50 mg
Q6HPRN PRN Administration
MODERATE PAIN
Home Medications
�Medication �Instructions �Recorded
acetaminophen 325 mg tablet 650 mg PO Q6HPRN PRN mild pain 11/03/24
(Tylenol)
aspirin 81 mg tablet,delayed 81 mg PO DAILY Blood Clot 11/03/24
release Prevention/Tx
atorvastatin 10 mg tablet (Lipitor) 10 mg PO HS High Cholesterol 11/03/24
bimatoprost 0.01 % eye drops 1 drp BOTH EYES HS Eye Condition 11/03/24
(Lumigan)
bisacodyl 10 mg rectal suppository 10 mg MI DAILYPRN PRN if no bm 11/03/24
(Dulcolax (bisacodyl)) aftr mom
citalopram 20 mg tablet (Celexa) 20 mg PO DAILY Mental Health 11/03/24
dapagliflozin propanediol 10 mg 10 mg PO DAILY Diabetes 11/03/24
tablet (Farxiga)
famotidine 40 mg tablet (Pepcid) 40 mg PO DAILY Gastrointestinal 11/03/24
Issue
gabapentin 300 mg capsule 300 mg PO HS Pain 11/03/24
levothyroxine 50 mcg tablet 50 mcg PO DAILY Thyroid 11/03/24
(Synthroid)
lorazepam 0.5 mg tablet 0.5 mg PO DAILYPRN PRN anixety 11/03/24
magnesium hydroxide 400 mg/5 mL 2,400 mg PO DAILYPRN PRN if no bm 11/03/24
oral suspension (Milk of Magnesia) by 3rd day
magnesium oxide 400 mg (241.3 mg 400 mg PO DAILY Electrolyte 11/03/24
magnesium) tablet (MagOx) Repletion
megestrol 800 mg/20 mL (20 mL) 200 mg PO QID Hormonal Agent 11/03/24
oral suspension
melatonin 3 mg tablet 3 mg PO HS Sleep 11/03/24
nystatin 100,000 unit/gram topical 1 applic topical QID under 11/03/24
powder breasts,groin area
oxycodone-acetaminophen 5 mg-325 1 tab PO Q6HPRN PRN severe pain 11/03/24
mg tablet
sodium chloride 1 gram tablet 1,000 mg PO DAILY Kidney Disease 11/03/24
sodium phosphates 19 gram-7 118 ml MI DAILYPRN PRN if no bm 11/03/24
gram/118 mL enema (Fleet Enema) aftr duloclax
trazodone 50 mg tablet 50 mg PO HSPRN PRN sleep 11/03/24
valsartan 160 mg tablet 160 mg PO BID Blood Pressure 11/03/24
Vital Signs and Labs
-
Vital Signs and Labs:
Vital Signs
Temp Pulse Resp BP Pulse Ox
36.4 C 90 20 149/68 94
11/04/24 16:10 11/04/24 16:10 11/04/24 16:10 11/04/24 11:00 11/04/24 11:00
Lab Results
11/03/24 06:21
11/03/24 06:21
Sodium 135 mmol/L (135-145) 11/03/24 06:21
Potassium 4.1 mmol/L (3.5-5.1) 11/03/24 06:21
BUN 19 mg/dl (7-17) H 11/03/24 06:21
Glucose 95 mg/dl (70-99) 11/03/24 06:21
Calcium 8.6 mg/dl (8.4-10.2) 11/03/24 06:21
Zmu-X-Lfyxbqneiul Pept 3440 pg/ml 11/02/24 23:12
LDL Cholesterol, Calc Cancelled 11/03/24 15:49
Vitamin B12 236 pg/ml (239-931) L 11/03/24 06:21
Medications
-
Medications:
Generic Name Dose Route Start Last Admin
Trade Name Freq PRN Reason Stop Dose Admin
Acetaminophen 650 mg 11/03/24 03:49 11/04/24 14:33
Acetaminophen 325 Mg Tablet PO 12/01/24 03:48 650 mg
Q4HPRN PRN Administration
mild pain/DICKINSON/temp> 100.4F
Aspirin 81 mg 11/03/24 08:00 11/04/24 10:59
Aspirin 81 Mg Chewable Tablet PO 12/01/24 07:59 81 mg
DAILY KIRTI Administration
Atorvastatin Calcium 10 mg 11/03/24 18:00 11/03/24 17:12
Atorvastatin (Lipitor) 10 Mg Tablet PO 12/01/24 17:59 10 mg
QPM KIRTI Administration
Bisacodyl 10 mg 11/03/24 03:49
Bisacodyl 10 Mg Rectal Suppository RECTAL 12/01/24 03:48
[id number] PRN
constipation
Ceftriaxone Sodium 1,000 mg 11/04/24 02:00 11/04/24 02:12
Ceftriaxone 1000 Mg / 10 Ml Vial IV 1,000 mg
Q24H KIRTI Administration
Citalopram Hydrobromide 20 mg 11/03/24 08:00 11/04/24 10:59
Citalopram 20 Mg Tablet PO 12/01/24 07:59 20 mg
DAILY KIRTI Administration
Cyanocobalamin 1,000 mcg 11/03/24 16:00 11/04/24 10:58
Cyanocobalamin (1000 Mcg/Ml) 1 Ml Vial IM 12/01/24 15:59 1,000 mcg
DAILY KIRTI Administration
Enoxaparin Sodium 40 mg 11/03/24 18:00 11/03/24 17:11
Enoxaparin Sodium 40 Mg/0.4 Ml Syringe SC 12/01/24 17:59 40 mg
QPM KIRTI Administration
Famotidine 40 mg 11/03/24 08:00 11/04/24 10:59
Famotidine 40 Mg Tablet PO 12/01/24 07:59 40 mg
DAILY KIRTI Administration
Latanoprost 0 drop 11/03/24 18:00 11/03/24 18:36
Latanoprost 0.005% (Ophthalmic Solution) 2.5 Ml Bottle OPHTH 12/01/24 17:59 1 drop
QPM KIRTI Administration
Levothyroxine Sodium 50 mcg 11/03/24 06:00 11/04/24 05:50
Levothyroxine 50 Mcg Tablet PO 12/01/24 05:59 50 mcg
DAILY @ 0600 KIRTI Administration
Megestrol Acetate 800 mg 11/03/24 08:00 11/04/24 10:58
Megestrol Oral Suspension (400 Mg/10 Ml) Cup PO 12/01/24 07:59 800 mg
DAILY KIRTI Administration
Miconazole Nitrate 0 applic 11/03/24 08:00 11/04/24 11:02
Miconazole Powder Bottle TOPICAL 12/01/24 07:59 1 applic
BID KIRTI Administration
Ondansetron HCl 4 mg 11/03/24 03:49
Ondansetron 4 Mg/2 Ml Vial IV 12/01/24 03:48
Q6HPRN PRN
nausea and vomiting
Polyethylene Glycol 17 grams 11/03/24 03:49
Polyethylene Glycol Powder 17 Grams Packet PO 12/01/24 03:48
DAILYPRN PRN
constipation
Senna/Docusate Sodium 1 tablet 11/03/24 03:49
Docusate W/Senna (Kasey-Colace) Tablet PO 12/01/24 03:48
BIDPRN PRN
constipation
Sodium Chloride 0 flush 11/04/24 01:30 11/04/24 04:20
0.9% Nacl Flush If Lactated Ringers Ivf Ordered IV 12/02/24 01:29 Not Given
0130,0230 KIRTI
Sterile Water 10 ml 11/04/24 02:00 11/04/24 02:13
Sterile Water For Injection 10 Ml Vial IV 12/02/24 01:59 10 ml
Q24H KIRTI Administration
Tramadol HCl 50 mg 11/03/24 18:38 11/04/24 02:17
Tramadol Hcl 50 Mg Tablet PO 12/01/24 18:37 50 mg
Q6HPRN PRN Administration
MODERATE PAIN
Home Medications
-
Home Medications
acetaminophen 325 mg tablet (Tylenol) 650 mg PO Q6HPRN PRN mild pain 11/03/24
aspirin 81 mg tablet,delayed release 81 mg PO DAILY Blood Clot Prevention/Tx 11/03/24
atorvastatin 10 mg tablet (Lipitor) 10 mg PO HS High Cholesterol 11/03/24
bimatoprost 0.01 % eye drops (Lumigan) 1 drp BOTH EYES HS Eye Condition 11/03/24
bisacodyl 10 mg rectal suppository (Dulcolax (bisacodyl)) 10 mg MI DAILYPRN PRN if no bm aftr mom 11/03/24
citalopram 20 mg tablet (Celexa) 20 mg PO DAILY Mental Health 11/03/24
dapagliflozin propanediol 10 mg tablet (Farxiga) 10 mg PO DAILY Diabetes 11/03/24
famotidine 40 mg tablet (Pepcid) 40 mg PO DAILY Gastrointestinal Issue 11/03/24
gabapentin 300 mg capsule 300 mg PO HS Pain 11/03/24
levothyroxine 50 mcg tablet (Synthroid) 50 mcg PO DAILY Thyroid 11/03/24
lorazepam 0.5 mg tablet 0.5 mg PO DAILYPRN PRN anixety 11/03/24
magnesium hydroxide 400 mg/5 mL oral suspension (Milk of Magnesia) 2,400 mg PO DAILYPRN PRN if no bm by 3rd day 11/03/24
magnesium oxide 400 mg (241.3 mg magnesium) tablet (MagOx) 400 mg PO DAILY Electrolyte Repletion 11/03/24
megestrol 800 mg/20 mL (20 mL) oral suspension 200 mg PO QID Hormonal Agent 11/03/24
melatonin 3 mg tablet 3 mg PO HS Sleep 11/03/24
nystatin 100,000 unit/gram topical powder 1 applic topical QID under breasts,groin area 11/03/24
oxycodone-acetaminophen 5 mg-325 mg tablet 1 tab PO Q6HPRN PRN severe pain 11/03/24
sodium chloride 1 gram tablet 1,000 mg PO DAILY Kidney Disease 11/03/24
sodium phosphates 19 gram-7 gram/118 mL enema (Fleet Enema) 118 ml MI DAILYPRN PRN if no bm aftr duloclax 11/03/24
trazodone 50 mg tablet 50 mg PO HSPRN PRN sleep 11/03/24
valsartan 160 mg tablet 160 mg PO BID Blood Pressure 11/03/24
[2024-11-04 10:53] VITALS: BP 121/63; PULSE 76; O2SAT 96
[2024-11-04] MEDS: CYANOCOBALAMIN 1000 MCG IM (10:58)
[2024-11-04] MEDS: MEGACE ORAL SUSPENSION 800 MG PO (10:58)
[2024-11-04] MEDS: LOW STRENGTH ASPIRIN 81 MG PO (10:59)
[2024-11-04] MEDS: PEPCID 40 MG PO (10:59)
[2024-11-04] MEDS: CELEXA 20 MG PO (10:59)
[2024-11-04 11:00] VITALS: BP 149/68
[2024-11-04] MEDS: DESENEX/MITRAZOL/ZEASORB 1 APPLIC TOPICAL ×2 (11:02→19:43)
--- NOTE | 2024-11-04 11:08 | CM ---
Addendum entered by Barbara Mendiola 11/04/24 11:28:
CM spoke with patients daughter, Helen, to complete initial assessment. Per daughter, patient is not a LTC resident at [facility], patient was discharged from hospital to their rehab, will not have patient return. Patient was at [facility]
prior to [facility], per daughter- [facility] was not able to provide care patient needed. Daughter reports prior to [facility], patient was living in an apartment independently, recently sold apartment. Daughter reports patient is WC bound but
was able to ambulate at [facility] in the past. Daughter inquiring if patient is palliative/hospice appropriate- TT to Hospitalist. CM will continue to follow for all discharge planning needs.
Original Note:
CM reviewed chart, patient from [facility]. VM left for Awa at [facility] to confirm patient short term vs LTC, obtain patients PLOF. Call to patients daughter, unable to leave voicemail. CM will continue to follow for all discharge planning
needs.
Plan; return to [facility] when stable, awaiting PLOF and if patient is STR vs LTC.
[2024-11-04 12:14] LABS: Glycohemoglobin (HgbA1c) 5.4 % (4.0-5.6)
[2024-11-04 12:21] VITALS: BP 149/68
[2024-11-04] MEDS: TYLENOL 650 MG PO (14:33)
--- NOTE | 2024-11-04 15:24 | CARDSERVLU ---
Echocardiogram with Lumason completed after protocol screening completed. Allergies verified.
Patent IV site: __R AC___
IV site flushed with 0.9% NaCl pre and post administration.
Diluted bolus method utilized to enhance visualization of ventricular montanez.
Total volume given: __2__ mL
Patient tolerated all procedures well without complications.
--- NOTE | 2024-11-04 16:26 | W.PN.HOSP.TC ---
Today's Communication/Plan
-
CW ASA and statin
CUS
HbA1c
Follow BP
Follow on tele
Cardiology consult
Assessment / Plan
Assessment / Plan
Change in mental status with rapid decline cognitively. Suspect related to CVA
MRI shows multiple foci of acute to subacute infarction perhaps occurring at different times. Differential is nonspecific demyelination.
Continue with aspirin and statins. Await neurology input.
Check carotid ultrasounds. Check an echocardiogram.
Admitting EKG showed sinus rhythm.
Probable UTI
- treatment with antibiotics and follow culture data
R knee laceration -
- monitor for dehiscence or infection
CAD/CHF - euvolemic.
- continue aspirin statin for now
- no diuretics
-Echo shows EF of 35 to 40%. Moderate AR noted.
Need old information. Consult cardiology.
Bradycardia - history of symptomatic bradycardia to 35 in june. No heart block on monitor and currently 55-60
- tele
- no blockers
- decline ppm in the past and family want to follow her then wishes
DM II
- hold farxiga
- insulin sliding scale for now
Diet pureed diet, awaiting mouth plates
DVT PPX - lovenox sq
Code status - -full code.
Discussed with daughter at bedside regarding MRI findings.
Total time spent on today's encounter was 52 minutes which included time spent in counseling the patient/family regarding diagnosis and treatment plan as listed above, goals of care, and symptom management. Case was discussed with nursing staff,
specialists, and care coordinators/case management. All labs and imaging personally reviewed by me. Remainder the time spent in detailed review of previous records, lab data, imaging, and other medical provider documentation.
Anticipated Discharge: > 48 hours
Subjective/Interval History
-
Date of Service: November 04, 2024
Remains confused
Patient voicing no specific complaint
Objective Data
-
Vital Signs:
Vital Signs
Temp Pulse Resp BP Pulse Ox
97.5 F 90 20 149/68 94
11/04/24 16:10 11/04/24 16:10 11/04/24 16:10 11/04/24 11:00 11/04/24 11:00
Review of Systems
-
Unable to obtain full review of systems at this time due to: Other (impaired cognitively)
Respiratory: Denies Trouble Breathing
Cardiac: Denies Chest Pain or Palpitations
Abdomen/GI: Denies Abdominal Pain, Nausea or Vomiting
Neuro: Denies Headache
Physical Exam
-
General: Comfortable
Respiratory: Non Labored Respirations; Negative Accessory Resp Muscle Use
Cardiac: Regular Rhythm and S1/S2
GI: Soft
Neuro: Awake, Alert and Oriented (self)
Psych: Calm and Confused
Data Reviewed
-
MRI: Report Reviewed by me (Brain)
Labs: Labs Reviewed by me
[2024-11-04 16:37] LABS: Syphilis/T. pallidum Ab Reflex Negative (Negative)
[2024-11-04] MEDS: LOVENOX 40 MG SC (17:54)
[2024-11-04] MEDS: XALATAN OPHTHALMIC SOLUTION 1 DROP OPHTH (17:54)
[2024-11-04] MEDS: LIPITOR 10 MG PO (17:54)
[2024-11-04 20:35] VITALS: BP 125/92
[2024-11-04 22:50] VITALS: BP 118/59
[2024-11-05] MEDS: ROCEPHIN 1000 MG IV (01:38)
[2024-11-05] MEDS: STERILE WATER FOR INJECTION 10 ML IV (01:39)
[2024-11-05 03:37] VITALS: BP 129/61
[2024-11-05] MEDS: SYNTHROID 50 MCG PO (05:21)
[2024-11-05 06:00] VITALS: BMI 26.3
[2024-11-05 07:00] VITALS: BP 137/74
[2024-11-05 07:28] LABS: Hematocrit 34.9 % (37.0-47.0); Hemoglobin 12.1 g/dL (12.0-16.0); Mean Corp Hgb Conc. 34.7 g/dL (33.0-37.0); Mean Corpuscular Hgb 32.8 pg (27.0-31.0); Mean Corpuscular Volume 94.6 fL (81.0-99.0); Mean Platelet Volume 9.4 fL (7.4-10.4); Platelet Count 248 10^3/uL (130-400); Red Blood Cell Count 3.69 10^6/uL (4.20-5.40); Red Cell Dist. Width 14.2 % (11.5-14.5); White Blood Cell Count 9.2 10^3/uL (4.8-10.8)
[2024-11-05 08:09] LABS: ALT (SGPT) 17 U/L (0-35); AST (SGOT) 21 U/L (14-36); Alkaline Phosphatase 91 U/L (38-126); Blood Urea Nitrogen 15 mg/dl (7-17); Calcium 8.6 mg/dl (8.4-10.2); Carbon Dioxide 16 mmol/L (22-30); Chloride 100 mmol/L (98-107); Estimated Creatinine Clearance 55 ml/min; Glucose 97 mg/dl (70-99); Potassium 3.7 mmol/L (3.5-5.1); Sodium 129 mmol/L (135-145); Total Bilirubin 1.6 mg/dl (0.2-1.3); eGFR > 60.00
[2024-11-05] MEDS: MEGACE ORAL SUSPENSION 800 MG PO (09:00)
[2024-11-05] MEDS: CYANOCOBALAMIN 1000 MCG IM (09:00)
[2024-11-05] MEDS: PEPCID 40 MG PO (09:00)
[2024-11-05] MEDS: LOW STRENGTH ASPIRIN 81 MG PO (09:00)
[2024-11-05] MEDS: CELEXA 20 MG PO (09:00)
[2024-11-05] MEDS: DESENEX/MITRAZOL/ZEASORB 1 APPLIC TOPICAL ×2 (09:02→20:12)
--- NOTE | 2024-11-05 09:37 | W.PN.HOSP.TC ---
Today's Communication/Plan
-
Continue with aspirin and statin.
Await cardiology input. Check carotid ultrasound.
Assessment / Plan
Assessment / Plan
Change in mental status with rapid decline cognitively. Suspect related to CVA
MRI shows multiple foci of acute to subacute infarction perhaps occurring at different times. Differential is nonspecific demyelination.
Continue with aspirin and statins. Await neurology input.
Check carotid ultrasounds.
Admitting EKG showed sinus rhythm. product support manager raises concern for A-fib. Await cardiology input.
PT/OT eval/tx
Probable UTI
- treatment with antibiotics and follow culture data
R knee laceration -
- monitor for dehiscence or infection
CAD/CHF - euvolemic.
- continue aspirin statin for now
- no diuretics
-Echo shows EF of 35 to 40%. Moderate AR noted.
Obtain old information. Consult cardiology.
Bradycardia - history of symptomatic bradycardia to 35 in june. No heart block on monitor and currently 55-60
- tele
- no blockers
- decline ppm in the past and family want to follow her then wishes
DM II
- hold farxiga
- insulin sliding scale for now
Hyponatremia
Follow for now
Diet pureed diet, awaiting mouth plates
DVT PPX - lovenox sq
Code status - -full code.
Discussed with neurology. Discussed with RN
Total time spent on today's encounter was 52 minutes which included time spent in counseling the patient/family regarding diagnosis and treatment plan as listed above, goals of care, and symptom management. Case was discussed with nursing staff,
specialists, and care coordinators/case management. All labs and imaging personally reviewed by me. Remainder the time spent in detailed review of previous records, lab data, imaging, and other medical provider documentation.
Anticipated Discharge: > 48 hours
Subjective/Interval History
-
Date of Service: November 05, 2024
Patient is alert and oriented to self only. She did not know where she is. She is not conversing much. But does not seems to be aphasic.
Discussed with RN-no overnight issues. No agitation.
Objective Data
-
Labs:
Laboratory Results
11/05/24
07:02
WBC 9.2
Hgb 12.1
Hct 34.9 L
Plt Count 248
Sodium 129 L
Potassium 3.7
Chloride 100
Carbon Dioxide 16 L
BUN 15
Creatinine 0.7
Glucose 97
Calcium 8.6
Total Bilirubin 1.6 H
AST 21
ALT 17
Alkaline Phosphatase 91
Vital Signs:
Vital Signs
Temp Pulse Resp BP Pulse Ox
98.3 F 77 18 137/74 98
11/05/24 07:00 11/05/24 07:00 11/05/24 07:00 11/05/24 07:00 11/05/24 07:00
I&O
11/04/24 11/05/24 11/06/24
06:59 06:59 06:59
Intake Total 770 / 770
Balance 770 / 770
Review of Systems
-
Unable to obtain full review of systems at this time due to: Other (Cognitive issues)
Physical Exam
-
General: Comfortable
Respiratory: Non Labored Respirations; Negative Accessory Resp Muscle Use
Cardiac: S1/S2 and Irregular Rhythm
GI: Soft
Neuro: Awake, Alert and Oriented; Negative No Motor Deficits (Upper extremity 4+/5 bilaterally. Having difficulty to lift legs off the bed . Distally in the ankle flexors strength 4/5)
Psych: Calm and Confused
Data Reviewed
-
Diagnostic Radiology: Report Reviewed by me (MRI of the brain)
Labs: Labs Reviewed by me
--- NOTE | 2024-11-05 11:12 | CON.CAR ---
Addendum entered and electronically signed by Sheldon Pedroza MD 11/05/24 15:52:
I saw and examined the patient.
The BOOK SALESMAN's note was reviewed and I agree with the note.
Comment: No LV thrombus with echo contrast. Tele carefully reviewed. No AFib. PACs/PVCs and a few short atrial runs. We can proceed with ZARIA and Loop implant if neurology requests. Will review with neurology. No bradycardia seen here.
Original Note:
Consultation
Consultation Request
Date/Time Consultation Requested: 11/05/2024 0900
Date/Time Consultation Performed: 11/05/2024 1040
Requesting Provider: DR. Acosta
Performing Provider: Dr. Pedroza
Reason for Consultation: possible AF, CVA
Medical History
-
Chief Complaint: Failure to thrive
History of Present Illness:
79-year-old woman with history of CAD, heart failure reduced ejection fraction, hypertension, bradycardia, CKD, diabetes who presented to the emergency room from her shelter facility. Per records the daughter had indicated that the patient
has continued to have a decline since June. Patient has continued to decline at rehab. She has been unable to ambulate herself and has been wheelchair dependent. Her mental status has continued to decline as well. She is also not eating and
drinking enough. Cardiology is being consulted for concern of possible atrial fibrillation on telemetry.
-
Su[employer] Plate [employer] DR. Yudith Case last seen 04/2024
Past Medical History
Past Medical History: Other (CAD, heart failure reduced ejection fraction, bradycardia, hyperlipidemia, [id number]-faoieiemd diabetes, anxiety, CKD, history of pulmonary embolism (obtained from chart as patient unable to provide))
Past Surgical History: None
Social History
Tobacco: Non-Smoker
Family History
Family History: Unable to Obtain
Allergies / Home Medications
Allergy/AdvReac Type Severity Reaction Status Date / Time
penicillin V Allergy Hives Verified 11/02/24 21:14
Sulfa (Sulfonamide Allergy Itching Verified 11/02/24 21:14
Antibiotics)
�Medication �Instructions �Recorded �Confirmed �Type
acetaminophen 325 mg tablet 650 mg PO Q6HPRN PRN mild pain 11/03/24 11/03/24 History
(Tylenol)
aspirin 81 mg tablet,delayed 81 mg PO DAILY Blood Clot 11/03/24 11/03/24 History
release Prevention/Tx
atorvastatin 10 mg tablet (Lipitor) 10 mg PO HS High Cholesterol 11/03/24 11/03/24 History
bimatoprost 0.01 % eye drops 1 drp BOTH EYES HS Eye Condition 11/03/24 11/03/24 History
(Lumigan)
bisacodyl 10 mg rectal suppository 10 mg [place] DAILYPRN PRN if no bm 11/03/24 11/03/24 History
(Dulcolax (bisacodyl)) aftr mom
citalopram 20 mg tablet (Celexa) 20 mg PO DAILY Mental Health 11/03/24 11/03/24 History
dapagliflozin propanediol 10 mg 10 mg PO DAILY Diabetes 11/03/24 11/03/24 History
tablet (Farxiga)
famotidine 40 mg tablet (Pepcid) 40 mg PO DAILY Gastrointestinal 11/03/24 11/03/24 History
Issue
gabapentin 300 mg capsule 300 mg PO HS Pain 11/03/24 11/03/24 History
levothyroxine 50 mcg tablet 50 mcg PO DAILY Thyroid 11/03/24 11/03/24 History
(Synthroid)
lorazepam 0.5 mg tablet 0.5 mg PO DAILYPRN PRN anixety 11/03/24 11/03/24 History
magnesium hydroxide 400 mg/5 mL 2,400 mg PO DAILYPRN PRN if no bm 11/03/24 11/03/24 History
oral suspension (Milk of Magnesia) by 3rd day
magnesium oxide 400 mg (241.3 mg 400 mg PO DAILY Electrolyte 11/03/24 11/03/24 History
magnesium) tablet (MagOx) Repletion
megestrol 800 mg/20 mL (20 mL) 200 mg PO QID Hormonal Agent 11/03/24 11/03/24 History
oral suspension
melatonin 3 mg tablet 3 mg PO HS Sleep 11/03/24 11/03/24 History
nystatin 100,000 unit/gram topical 1 applic topical QID under 11/03/24 11/03/24 History
powder breasts,groin area
oxycodone-acetaminophen 5 mg-325 1 tab PO Q6HPRN PRN severe pain 11/03/24 11/03/24 History
mg tablet
sodium chloride 1 gram tablet 1,000 mg PO DAILY Kidney Disease 11/03/24 11/03/24 History
sodium phosphates 19 gram-7 118 ml KS DAILYPRN PRN if no bm 11/03/24 11/03/24 History
gram/118 mL enema (Fleet Enema) aftr duloclax
trazodone 50 mg tablet 50 mg PO HSPRN PRN sleep 11/03/24 11/03/24 History
valsartan 160 mg tablet 160 mg PO BID Blood Pressure 11/03/24 11/03/24 History
Review of Systems
-
Unable to obtain full review of systems at this time due to: Other (Limited ROS secondary to patient being lethargic. She denies chest pain or shortness of breath)
Respiratory: No Symptoms
Cardiac: No Symptoms
Physical Exam
Vital Signs
Temp Pulse Resp BP Pulse Ox
98.3 F 77 18 137/74 98
11/05/24 07:00 11/05/24 07:00 11/05/24 07:00 11/05/24 07:00 11/05/24 07:00
Lab Results
11/05/24 07:02
11/05/24 07:02
Hmi-Z-Ilwrmpwafvn Pept 3440 pg/ml 11/02/24 23:12
Physical Exam
General: No Apparent Distress
HEENT: Normocephalic and Anicteric
Respiratory: Clear
Cardiac: S1/S2 and Regular Rhythm
GI: Soft and Non Tender
Musculoskeletal: No Cyanosis and No Edema
Neuro: Awake
Psych: Calm
Impression / Plan
-
Change in mental status with rapid decline cognitively.
MRI shows multiple foci of acute to subacute infarction occurring at different times.
EKG and telemetry with normal sinus rhythm , frequent PACs
Will con't to monitor tele for AF
Consider ZARIA on 11/07/24
CAD: Continue medical therapy
HFrEF:
-Echocardiogram from 11/04/2024 EF 35-40 mildly dilated LV global hypokinesis moderately reduced LV function, moderate MR. Density in LV apex in some views Possible artifact cannot exclude thrombus. Possible ZARIA 11/07/24
-Does not appear to be volume overload.
-Her outpatient medication list did not have diuretics
-Follows with Dr. Zurita at [place] since 1991. ( spoke with daughter Helen and reviewed this)
Bradycardia:
-Jun 2024 was more fatigue- went to [facility] [facility] Hr[facility], PPM was recommended but she declined.
- no pauses or bradycardia noted here.
- avoid beta blockers for now
- decline ppm in the past and family want to follow her then wishes
Hyponatremia
- monitoring
h/o PE 2021:
-per daughter 2021 had PE was on eliquis for a period of time
Data Reviewed
-
EKG: Tracing Personally Visualized and interpreted (NSR 81 bpm, PAC's, LAFB,LVH)
Radiology: Report Reviewed by me (MRI 11/03/24 Findings are most suggestive of multiple foci of acute to subacute infarction, perhaps occurring at different times, within an overall subacute timeframe.)
Labs: Labs Reviewed by me
[2024-11-05 11:38] VITALS: BP 120/62
[2024-11-05 11:54] LABS: Glucose - Point of Care 152 mg/dl (70-99)
[2024-11-05] MEDS: NOVOLOG FLEXPEN-LOW RESISTANCE 1 UNITS SC (12:49)
[2024-11-05 15:51] VITALS: BP 127/71
--- NOTE | 2024-11-05 16:36 | W.PN.NEURO.1 ---
Today's Communication / Plan
-
.
Subjective/Objective
Subjective Data
Date of Service: November 05, 2024
Neurology Follow up Note
No acute events overnight. Ms. Francis reports no complaint.
Tele: No A-fib.
TTE�ejection fraction of 40%. Interatrial septum is intact with no evidence of shunting by color flow Doppler. No intracardiac mass or thrombus formation seen.
PMH: SSS, cardiomyopathy(since mid 40s), CAD, PAD, CHF, HTN, DLP, hypothyroidism, h/o CDif, SSS?, ambulatory dysfunction, glaucoma
PSH: SHAYY, bladder lift, cholecystectomy, BL cataract removal,
SH: single, Resident at [facility], former smoker; used to be a personal fitness manager at [employer];
FH:father in his 50s, had heart issues, mother-brain aneurysm
All: Sulfas, penicillin,
ROS: Negative for headache, change in vision or strength.
General: Well developed. In no acute distress.
Cardio: Regular rate and rhythm without murmur. Extremities are without cyanosis or edema.
Neuro:
Mental Status: Alert, oriented to name, date of , 2024. Attends to examiner. Follows simple requests intermittently. Fluctuating mood
Cranial Nerves: Pupils are equally round and reactive to light. Horizontal EOMs full. Blinks to threat bilaterally. No facial weakness. Hearing is preserved. No dysarthria.
Motor: Increased motor tone in upper and lower extremities. With minimal movements in bed plane.
Reflexes: Limited exam due to increased motor tone.
Sensory: Unable to obtain due to poor attention
Coordination: No tremors myoclonic movements
Gait: deferred
Assessment and Plan:
I. Acute bihemispheric strokes, likely etiology�embolic
II. Vitamin B12 deficiency
III. Prolonged QTc
-Continue Telemetry monitoring.
-Fall precautions
-ASA 81 mg QD indefinitely
-Plavix 75 mg QD for 21 days.
-Lipitor 40 mg QHS.
-ZARIA/ILR
-PT, speech therapy
-Continue vitamin B12
-DVT prophylaxis.
I personally reviewed all radiology and labs along with past medical records pertinent to current medical problems. Total time spent in patient care is 35 minutes.
Objective Data
Vital Signs
Temp Pulse Resp BP Pulse Ox
37.0 C 82 18 127/71 97
11/05/24 15:51 11/05/24 15:51 11/05/24 15:51 11/05/24 15:51 11/05/24 15:51
Lab Results
11/05/24 07:02
11/05/24 07:02
Sodium 129 mmol/L (135-145) L 11/05/24 07:02
Potassium 3.7 mmol/L (3.5-5.1) 11/05/24 07:02
BUN 15 mg/dl (7-17) 11/05/24 07:02
Glucose 97 mg/dl (70-99) 11/05/24 07:02
Calcium 8.6 mg/dl (8.4-10.2) 11/05/24 07:02
Vjk-L-Yuxbcvrwkqy Pept 3440 pg/ml 11/02/24 23:12
LDL Cholesterol, Calc Cancelled 11/03/24 15:49
Vitamin B12 236 pg/ml (239-931) L 11/03/24 06:21
Patient Allergies
penicillin V Allergy (Verified 11/02/24 21:14)
Hives
Sulfa (Sulfonamide Antibiotics) Allergy (Verified 11/02/24 21:14)
Itching
Vital Signs and Labs
-
Vital Signs and Labs:
Vital Signs
Temp Pulse Resp BP Pulse Ox
36.8 C 67 20 120/60 94
11/06/24 11:14 11/06/24 11:14 11/06/24 11:14 11/06/24 11:14 11/06/24 11:14
Lab Results
11/05/24 07:02
11/06/24 07:05
Sodium 130 mmol/L (135-145) L 11/06/24 07:05
Potassium 3.5 mmol/L (3.5-5.1) 11/06/24 07:05
BUN 17 mg/dl (7-17) 11/06/24 07:05
Glucose 109 mg/dl (70-99) H 11/06/24 07:05
Calcium 8.3 mg/dl (8.4-10.2) L 11/06/24 07:05
Okd-A-Gkcmlyvjpnj Pept 3440 pg/ml 11/02/24 23:12
LDL Cholesterol, Calc Cancelled 11/03/24 15:49
Vitamin B12 236 pg/ml (239-931) L 11/03/24 06:21
Medications
-
Medications:
Generic Name Dose Route Start Last Admin
Trade Name Freq PRN Reason Stop Dose Admin
Acetaminophen 650 mg 11/03/24 03:49 11/04/24 14:33
Acetaminophen 325 Mg Tablet PO 12/01/24 03:48 650 mg
Q4HPRN PRN Administration
mild pain/DICKINSON/temp> 100.4F
Aspirin 81 mg 11/03/24 08:00 11/06/24 08:41
Aspirin 81 Mg Chewable Tablet PO 12/01/24 07:59 81 mg
DAILY KIRTI Administration
Atorvastatin Calcium 10 mg 11/03/24 18:00 11/05/24 17:04
Atorvastatin (Lipitor) 10 Mg Tablet PO 12/01/24 17:59 10 mg
QPM KIRTI Administration
Bisacodyl 10 mg 11/03/24 03:49
Bisacodyl 10 Mg Rectal Suppository RECTAL 12/01/24 03:48
[id number] PRN
constipation
Ceftriaxone Sodium 1,000 mg 11/04/24 02:00 11/06/24 01:06
Ceftriaxone 1000 Mg / 10 Ml Vial IV 1,000 mg
Q24H KIRTI Administration
Citalopram Hydrobromide 20 mg 11/03/24 08:00 11/06/24 08:41
Citalopram 20 Mg Tablet PO 12/01/24 07:59 20 mg
DAILY KIRTI Administration
Cyanocobalamin 1,000 mcg 11/03/24 16:00 11/06/24 08:42
Cyanocobalamin (1000 Mcg/Ml) 1 Ml Vial IM 12/01/24 15:59 1,000 mcg
DAILY KIRTI Administration
Dextrose 12.5 grams 11/05/24 08:38
Dextrose 50% (0.5 Grams/Ml) 50 Ml Syringe IV 12/03/24 08:37
[id number] PRN
hypoglycemia
Protocol
Enoxaparin Sodium 40 mg 11/03/24 18:00 11/05/24 17:04
Enoxaparin Sodium 40 Mg/0.4 Ml Syringe SC 12/01/24 17:59 40 mg
QPM KIRTI Administration
Famotidine 40 mg 11/03/24 08:00 11/06/24 08:41
Famotidine 40 Mg Tablet PO 12/01/24 07:59 40 mg
DAILY KIRTI Administration
Glucagon 1 mg 11/05/24 08:38
Glucagon 1 Mg Vial IM 12/03/24 08:37
PRN PRN
hypoglycemia
Protocol
Insulin Aspart 0 units 11/05/24 11:30 11/06/24 08:40
Insulin Aspart Low Resistance 300 Units/3 Ml Pen.Injctr SC 12/03/24 11:29 Not Given
AC KIRTI
Protocol
Latanoprost 0 drop 11/03/24 18:00 11/05/24 17:05
Latanoprost 0.005% (Ophthalmic Solution) 2.5 Ml Bottle OPHTH 12/01/24 17:59 1 drop
QPM KIRTI Administration
Levothyroxine Sodium 50 mcg 11/03/24 06:00 11/06/24 05:23
Levothyroxine 50 Mcg Tablet PO 12/01/24 05:59 50 mcg
DAILY @ 0600 KIRTI Administration
Megestrol Acetate 800 mg 11/03/24 08:00 11/06/24 08:41
Megestrol Oral Suspension (400 Mg/10 Ml) Cup PO 12/01/24 07:59 800 mg
DAILY KIRTI Administration
Miconazole Nitrate 0 applic 11/03/24 08:00 11/06/24 08:41
Miconazole Powder Bottle TOPICAL 12/01/24 07:59 1 applic
BID KIRTI Administration
Ondansetron HCl 4 mg 11/03/24 03:49
Ondansetron 4 Mg/2 Ml Vial IV 12/01/24 03:48
Q6HPRN PRN
nausea and vomiting
Polyethylene Glycol 17 grams 11/03/24 03:49
Polyethylene Glycol Powder 17 Grams Packet PO 12/01/24 03:48
DAILYPRN PRN
constipation
Senna/Docusate Sodium 1 tablet 11/03/24 03:49
Docusate W/Senna (Kasey-Colace) Tablet PO 12/01/24 03:48
BIDPRN PRN
constipation
Sterile Water 10 ml 11/04/24 02:00 11/06/24 01:07
Sterile Water For Injection 10 Ml Vial IV 12/02/24 01:59 10 ml
Q24H KIRTI Administration
Tramadol HCl 50 mg 11/03/24 18:38 11/04/24 02:17
Tramadol Hcl 50 Mg Tablet PO 12/01/24 18:37 50 mg
Q6HPRN PRN Administration
MODERATE PAIN
Vancomycin HCl 125 mg 11/06/24 12:00
Vancomycin Oral Solution 50 Mg/Ml In Oral Syringe PO
Q6 KIRTI
Home Medications
-
Home Medications
acetaminophen 325 mg tablet (Tylenol) 650 mg PO Q6HPRN PRN mild pain 11/03/24
aspirin 81 mg tablet,delayed release 81 mg PO DAILY Blood Clot Prevention/Tx 11/03/24
atorvastatin 10 mg tablet (Lipitor) 10 mg PO HS High Cholesterol 11/03/24
bimatoprost 0.01 % eye drops (Lumigan) 1 drp BOTH EYES HS Eye Condition 11/03/24
bisacodyl 10 mg rectal suppository (Dulcolax (bisacodyl)) 10 mg [place] DAILYPRN PRN if no bm aftr mom 11/03/24
citalopram 20 mg tablet (Celexa) 20 mg PO DAILY Mental Health 11/03/24
dapagliflozin propanediol 10 mg tablet (Farxiga) 10 mg PO DAILY Diabetes 11/03/24
famotidine 40 mg tablet (Pepcid) 40 mg PO DAILY Gastrointestinal Issue 11/03/24
gabapentin 300 mg capsule 300 mg PO HS Pain 11/03/24
levothyroxine 50 mcg tablet (Synthroid) 50 mcg PO DAILY Thyroid 11/03/24
lorazepam 0.5 mg tablet 0.5 mg PO DAILYPRN PRN anixety 11/03/24
magnesium hydroxide 400 mg/5 mL oral suspension (Milk of Magnesia) 2,400 mg PO DAILYPRN PRN if no bm by 3rd day 11/03/24
magnesium oxide 400 mg (241.3 mg magnesium) tablet (MagOx) 400 mg PO DAILY Electrolyte Repletion 11/03/24
megestrol 800 mg/20 mL (20 mL) oral suspension 200 mg PO QID Hormonal Agent 11/03/24
melatonin 3 mg tablet 3 mg PO HS Sleep 11/03/24
nystatin 100,000 unit/gram topical powder 1 applic topical QID under breasts,groin area 11/03/24
oxycodone-acetaminophen 5 mg-325 mg tablet 1 tab PO Q6HPRN PRN severe pain 11/03/24
sodium chloride 1 gram tablet 1,000 mg PO DAILY Kidney Disease 11/03/24
sodium phosphates 19 gram-7 gram/118 mL enema (Fleet Enema) 118 ml [place] DAILYPRN PRN if no bm aftr duloclax 11/03/24
trazodone 50 mg tablet 50 mg PO HSPRN PRN sleep 11/03/24
valsartan 160 mg tablet 160 mg PO BID Blood Pressure 11/03/24
[2024-11-05 16:45] LABS: Glucose - Point of Care 133 mg/dl (70-99)
[2024-11-05] MEDS: NOVOLOG FLEXPEN-LOW RESISTANCE SC (16:56)
[2024-11-05] MEDS: LOVENOX 40 MG SC (17:04)
[2024-11-05] MEDS: LIPITOR 10 MG PO (17:04)
[2024-11-05] MEDS: XALATAN OPHTHALMIC SOLUTION 1 DROP OPHTH (17:05)
[2024-11-05 21:36] LABS: Glucose - Point of Care 130 mg/dl (70-99)
[2024-11-05 23:18] VITALS: BP 133/67
[2024-11-06] MEDS: ROCEPHIN 1000 MG IV (01:06)
[2024-11-06] MEDS: STERILE WATER FOR INJECTION 10 ML IV (01:07)
[2024-11-06 03:43] VITALS: BP 132/73
[2024-11-06] MEDS: SYNTHROID 50 MCG PO (05:23)
[2024-11-06 06:00] VITALS: BMI 26.5
[2024-11-06 07:21] VITALS: BP 126/62
[2024-11-06 07:43] LABS: Glucose - Point of Care 110 mg/dl (70-99)
[2024-11-06 07:52] LABS: Blood Urea Nitrogen 17 mg/dl (7-17); Calcium 8.3 mg/dl (8.4-10.2); Carbon Dioxide 18 mmol/L (22-30); Chloride 102 mmol/L (98-107); Estimated Creatinine Clearance 55 ml/min; Glucose 109 mg/dl (70-99); Potassium 3.5 mmol/L (3.5-5.1); Sodium 130 mmol/L (135-145); eGFR > 60.00
--- NOTE | 2024-11-06 08:33 | W.PN.HOSP.TC ---
Today's Communication/Plan
-
Continue with aspirin and statins. Follow carotid ultrasound.
Continue telemetry.
Check urine lites and follow sodium
Start on p.o. vancomycin. Continue with IV ceftriaxone for UTI.
Assessment / Plan
Assessment / Plan
Change in mental status with rapid decline cognitively. Suspect related to CVA
MRI shows multiple foci of acute to subacute infarction perhaps occurring at different times. Differential is nonspecific demyelination.
Continue with aspirin and statins. Neurology input input noted.
Check carotid ultrasounds.
Admitting EKG showed sinus rhythm. slag skimmer raises concern for A-fib but cardiology see PAC and runs of atach. Follow with tele.
Blood pressure under goal.
Hemoglobin A1c 5.6.
Continue with PT/OT eval/tx
Echo with low EF and moderate AR-cardiology going to touch base with neurology regarding the need of ZARIA and Linq monitor
Probable UTI
-Urinalysis positive for Klebsiella pneumonia
-Continue with ceftriaxone
CAD/CHF - euvolemic in fact suspect more hypovolemia with diarrheal fluid losses and worsening hyponatremia. Check urine sodium and creatinine.
- continue aspirin statin for now
- no diuretics
-Echo shows EF of 35 to 40%. Moderate AR noted.
Obtain old information. Appreciate cardiology input
Diarrhea-patient had a history of 2 episodes of C. difficile per family. Currently C. difficile antigen is positive toxin negative but with clinical scenario of diarrhea and currently in need of antibiotics will start on vancomycin p.o.
Bradycardia - history of symptomatic bradycardia to 35 in june. No heart block on monitor and currently 55-60
-Continue with tele
- no blockers
- decline ppm in the past and family want to follow her then wishes
DM II
- hold farxiga
- insulin sliding scale for now
Hyponatremia
With diarrheal losses suspect for hypovolemia related. Check urine lites and depending we will supplement with IV fluids.
R knee laceration -
- monitor for dehiscence or infection
Diet pureed diet, awaiting mouth plates
DVT PPX - lovenox sq
Code status - -full code.
Discussed with RN
Total time spent on today's encounter was 52 minutes which included time spent in counseling the patient/family regarding diagnosis and treatment plan as listed above, goals of care, and symptom management. Case was discussed with nursing staff,
specialists, and care coordinators/case management. All labs and imaging personally reviewed by me. Remainder the time spent in detailed review of previous records, lab data, imaging, and other medical provider documentation.
Anticipated Discharge: > 48 hours
Subjective/Interval History
-
Date of Service: November 06, 2024
Patient bit more responsive and interactive. Still slow in her responses.
When asked how she slept, she said' I did sleep good'
Not oriented to place.
Not responding to all questions still.
Per RN patient has frequent loose bowel movements since yesterday
Objective Data
-
Labs:
Laboratory Results
11/06/24
07:05
Sodium 130 L
Potassium 3.5
Chloride 102
Carbon Dioxide 18 L
BUN 17
Creatinine 0.7
Glucose 109 H
Calcium 8.3 L
Vital Signs:
Vital Signs
Temp Pulse Resp BP Pulse Ox
98.9 F 69 20 126/62 97
11/06/24 07:21 11/06/24 07:21 11/06/24 07:21 11/06/24 07:21 11/06/24 07:21
I&O
11/05/24 11/06/24 11/07/24
06:59 06:59 06:59
Intake Total 770 / 770 480 / 480
Balance 770 / 770 480 / 480
Review of Systems
-
Unable to obtain full review of systems at this time due to: Other (Cognitive impairment)
Physical Exam
-
General: Comfortable
Respiratory: Clear to Auscultation (anteriorly) and Non Labored Respirations; Negative Accessory Resp Muscle Use
Cardiac: Regular Rhythm and S1/S2; Negative Tachycardic
GI: Soft, Nontender, Nondistended and Normal Bowel Sounds
Neuro: Awake and Alert
Psych: Calm
Data Reviewed
-
Labs: Labs Reviewed by me
[2024-11-06] MEDS: NOVOLOG FLEXPEN-LOW RESISTANCE SC ×3 (08:40→17:32)
[2024-11-06] MEDS: LOW STRENGTH ASPIRIN 81 MG PO (08:41)
[2024-11-06] MEDS: MEGACE ORAL SUSPENSION 800 MG PO (08:41)
[2024-11-06] MEDS: PEPCID 40 MG PO (08:41)
[2024-11-06] MEDS: CELEXA 20 MG PO (08:41)
[2024-11-06] MEDS: DESENEX/MITRAZOL/ZEASORB 1 APPLIC TOPICAL ×2 (08:41→20:55)
[2024-11-06] MEDS: CYANOCOBALAMIN 1000 MCG IM (08:42)
[2024-11-06 10:36] LABS: Urine Albumin Trace (Neg - Trace); Urine Bilirubin Negative (Negative); Urine Character Clear (Clear); Urine Color Yellow; Urine Glucose 2+ (Negative); Urine Ketone Negative (Negative); Urine Leukocyte Trace (Negative); Urine Nitrite Negative (Negative); Urine Occult Blood Negative (Negative); Urine Specific Gravity 1.025 (<1.030); Urine Urobilinogen Negative (Neg - 1+)
[2024-11-06 10:42] LABS: Osmolality Urine 805 mOsm/kg (300-900)
[2024-11-06 11:03] LABS: Urine Sodium 100 mmol/L (30-90)
[2024-11-06 11:12] LABS: Urine Squamous Cell >30 /LPF (Few)
[2024-11-06 11:14] VITALS: BP 120/60
[2024-11-06 11:20] LABS: Urine Bacteria Few (Negative)
[2024-11-06 11:38] LABS: Glucose - Point of Care 137 mg/dl (70-99)
[2024-11-06] MEDS: FIRVANQ 125 MG PO ×3 (11:46→23:20)
--- NOTE | 2024-11-06 14:37 | W.PN.CD ---
Today's Communication / Plan
-
Continue tele
I do not think she is a candidate for a ZARIA or Loop implant
No pacemaker at this time
If no afib seen during this admit we will pursue a 30 day looping event recorder with auto trigger
Impression / Plan
-
Change in mental status with rapid decline cognitively.
- MRI shows multiple foci of acute to subacute infarction occurring at different times.
- DDx for MRI findings per radiology: would be focal areas of nonspecific demyelination, of uncertain etiology.
- EKG and telemetry with normal sinus rhythm , frequent PACs
- Will con't to monitor tele for AF
- She is not a candidate for a ZARIA or loop implant with her current neurologic status
CAD
HFrEF, euvolemic
- Her outpatient medication list did not have diuretics
- Follows with Dr. Zurita at [facility] since 1991. (ELAN Almonte, spoke with daughter Helen and reviewed this)
- Continue ARB
- Avoid BB given a hx of bradycardia
Bradycardia:
- Jun 2024 was more fatigue- went to [facility] , Hr's 30's, PPM was recommended but she declined.
- no pauses or bradycardia noted here.
- avoid beta blockers for now
- pt declined ppm in the past. Seems appropriate to me (Yovany) that we accept the patient's expressed desire not to have a pacemaker.
Hyponatremia
h/o PE 2021: per daughter 2021 had PE was on eliquis for a period of time
Subjective:
Non verbal
Data:
Echo 11/04/2024: LVEF 35-40%, mildly dilated LV, global hypo, mod MR. No LV thrombus seen with IV echo contrast
Physical Exam
Vital Signs/Labs
Vital Signs
Temp Pulse Resp BP Pulse Ox
98.3 F 67 20 120/60 94
11/06/24 11:14 11/06/24 11:14 11/06/24 11:14 11/06/24 11:14 11/06/24 11:14
11/05/24 11/06/24 11/07/24
06:59 06:59 06:59
Actual Weight 67.387 kg 67.948 kg
11/05/24 07:02
11/06/24 07:05
Magnesium 1.5 mg/dl (1.6-2.3) L 11/03/24 06:21
Triglycerides Cancelled 11/03/24 15:49
LDL Cholesterol, Calc Cancelled 11/03/24 15:49
VLDL Cholesterol, Calc Cancelled 11/03/24 15:49
HDL Cholesterol Cancelled 11/03/24 15:49
11/02/24
23:12
[id number] Pept 3440
Physical Exam
Constitutional: No acute distress
Cardiovascular: Rhythm & rate is regular and Pedal edema is absent
Respiratory: Respiratory effort normal and Lungs clear to auscul.
GI: Soft and Distention absent
Neuro/Psych: Other (not alert and not responding to my questions)
Data Reviewed
-
Date of Service: November 06, 2024
[2024-11-06 15:11] VITALS: BP 117/56
[2024-11-06 16:28] LABS: Glucose - Point of Care 140 mg/dl (70-99)
[2024-11-06] MEDS: LIPITOR 10 MG PO (17:51)
[2024-11-06] MEDS: LOVENOX 40 MG SC (17:51)
[2024-11-06] MEDS: XALATAN OPHTHALMIC SOLUTION 1 DROP OPHTH (18:05)
[2024-11-06 19:30] VITALS: BP 121/58
[2024-11-06 21:30] LABS: Glucose - Point of Care 141 mg/dl (70-99)
[2024-11-06 23:30] VITALS: BP 156/95
[2024-11-07] MEDS: STERILE WATER FOR INJECTION 10 ML IV (01:17)
[2024-11-07] MEDS: ROCEPHIN 1000 MG IV (01:17)
[2024-11-07 03:33] VITALS: BP 124/59
[2024-11-07] MEDS: SYNTHROID 50 MCG PO (05:00)
[2024-11-07] MEDS: FIRVANQ 125 MG PO ×3 (05:00→19:20)
[2024-11-07 06:00] VITALS: BMI 26.1
[2024-11-07 07:18] VITALS: BP 133/64
[2024-11-07 07:37] LABS: Glucose - Point of Care 101 mg/dl (70-99)
[2024-11-07 07:50] LABS: Hematocrit 33.7 % (37.0-47.0); Hemoglobin 11.4 g/dL (12.0-16.0); Mean Corp Hgb Conc. 33.8 g/dL (33.0-37.0); Mean Corpuscular Hgb 32.8 pg (27.0-31.0); Mean Corpuscular Volume 96.8 fL (81.0-99.0); Mean Platelet Volume 9.2 fL (7.4-10.4); Platelet Count 272 10^3/uL (130-400); Red Blood Cell Count 3.48 10^6/uL (4.20-5.40); Red Cell Dist. Width 14.5 % (11.5-14.5); White Blood Cell Count 10.1 10^3/uL (4.8-10.8)
[2024-11-07 08:30] LABS: Blood Urea Nitrogen 17 mg/dl (7-17); Calcium 8.7 mg/dl (8.4-10.2); Carbon Dioxide 17 mmol/L (22-30); Chloride 102 mmol/L (98-107); Estimated Creatinine Clearance 55 ml/min; Glucose 106 mg/dl (70-99); Potassium 3.6 mmol/L (3.5-5.1); Sodium 131 mmol/L (135-145); eGFR > 60.00
[2024-11-07] MEDS: NOVOLOG FLEXPEN-LOW RESISTANCE SC ×3 (09:36→18:00)
--- NOTE | 2024-11-07 09:49 | W.PN.HOSP.TC ---
Today's Communication/Plan
-
Consult palliative care
Assessment / Plan
Assessment / Plan
Acute bihemispheric strokes, likely etiology�embolic
Change in mental status with rapid decline cognitively. Suspect related to CVA
MRI shows multiple foci of acute to subacute infarction perhaps occurring at different times. Differential is nonspecific demyelination.
Neurology input input noted.
Admitting EKG showed sinus rhythm. management internship raises concern for A-fib
Apprec cards input, not a candidate for ZARIA or loop recorder due to clinical status
Hemoglobin A1c 5.6.
Continue with PT/OT eval/tx - rec STR
Continue with aspirin and statins. Started plavix x 21 days
Consult palliative care per dtr request
Probable UTI
-Urinalysis positive for Klebsiella pneumonia
-Status post Rocephin x 5 days
CAD/CHF - euvolemic in fact suspect more hypovolemia with diarrheal fluid losses and worsening hyponatremia. Check urine sodium and creatinine.
- continue aspirin statin for now
- no diuretics
-Echo shows EF of 35 to 40%. Moderate AR noted.
Obtain old information. Appreciate cardiology input
Diarrhea-patient had a history of 2 episodes of C. difficile per family. Currently C. difficile antigen is positive toxin negative but with clinical scenario of diarrhea and currently in need of antibiotics will start on vancomycin p.o.
Bradycardia - history of symptomatic bradycardia to 35 in june. No heart block on monitor and currently 55-60
-Continue with tele
- no blockers
- decline ppm in the past and family want to follow her then wishes
DM II
- hold farxiga
- insulin sliding scale for now
Hyponatremia
With diarrheal losses suspect for hypovolemia related. Check urine lites and depending we will supplement with IV fluids.
R knee laceration -
- monitor for dehiscence or infection
Diet pureed diet, awaiting mouth plates
DVT PPX - lovenox sq
Code status - full code
Updated daughter on phone 1/13
Total time spent to see the patient on the floor, examine the patient, review data and lab results, discuss treatment plan with patient, nursing staff around 50 minutes.
Physical Exam
General: No acute distress
HEENT: Normocephalic, Atraumatic, EOMI, MMM
Respiratory: Clear to Auscultation bilaterally
Cardiac: Normal S1/S2, Regular Rate and Rhythm
GI: Soft, Nontender, Nondistended, Normal Bowel Sounds
Extremities: No Clubbing, Cyanosis, or Edema
Neuro: Not responding to questions
Psych: Calm, Cooperative
Derm: No Visible lesions
Anticipated Discharge: 24 - 48 hours
Subjective/Interval History
-
Date of Service: November 07, 2024
No acute changes. Patient not answering questions. No fever, no vomiting.
Objective Data
-
Labs:
Laboratory Results
11/07/24
07:17
WBC 10.1
Hgb 11.4 L
Hct 33.7 L
Plt Count 272
Sodium 131 L
Potassium 3.6
Chloride 102
Carbon Dioxide 17 L
BUN 17
Creatinine 0.7
Glucose 106 H
Calcium 8.7
Vital Signs:
Vital Signs
Temp Pulse Resp BP Pulse Ox
98.5 F 76 20 133/64 97
11/07/24 07:18 11/07/24 07:18 11/07/24 07:18 11/07/24 07:18 11/07/24 07:18
I&O
11/06/24 11/07/24 11/08/24
06:59 06:59 06:59
Intake Total 480 / 480 600 / 600
Balance 480 / 480 600 / 600
--- NOTE | 2024-11-07 10:34 | W.PN.CD ---
Today's Communication / Plan
-
No current indication for pacemaker
We do not plan on offering her a ZARIA or insertable loop recorder implant
Watch on tele. If AFib seen then stop antiplatelet and initiate Eliquis at AFib dosing
At discharge she/family should reach out to her long standing windows administrator, Dr. Cinthya Case (last seen 04/2024) for consideration of a 4 week monitor or if clinically improved potentially an insertable loop implant
Cardiology will sign off
Impression / Plan
-
Change in mental status with rapid decline cognitively.
- MRI shows multiple foci of acute to subacute infarction occurring at different times.
- DDx for MRI findings per radiology: would be focal areas of nonspecific demyelination, of uncertain etiology.
- No AFib/flutter seen here
- Antiplatelet therapy per neurology
CAD
HFrEF, euvolemic
- Her outpatient medication list did not have diuretics
- Follows with Dr. Zurita at [facility] since 1991. (ELAN Almonte, spoke with daughter Helen and reviewed this)
- Continue ARB
- Avoid BB given a hx of bradycardia
Bradycardia:
- Jun 2024 was more fatigue- went to [facility] , Hr's 30's, PPM was recommended but she declined.
- no pauses or bradycardia noted here.
- avoid beta blockers for now
- pt declined ppm in the past. Seems appropriate to me (Yovany) that we accept the patient's expressed desire not to have a pacemaker.
Hyponatremia
h/o PE 2021: per daughter 2021 had PE was on eliquis for a period of time
Subjective:
More alert today. Denies cp/dyspnea
Data:
Echo 11/04/2024: LVEF 35-40%, mildly dilated LV, global hypo, mod MR. No LV thrombus seen with IV echo contrast
Physical Exam
Vital Signs/Labs
Vital Signs
Temp Pulse Resp BP Pulse Ox
98.5 F 76 20 133/64 97
11/07/24 07:18 11/07/24 07:18 11/07/24 07:18 11/07/24 07:18 11/07/24 07:18
11/06/24 11/07/24 11/08/24
06:59 06:59 06:59
Actual Weight 67.948 kg 66.877 kg
11/07/24 07:17
11/07/24 07:17
Magnesium 1.5 mg/dl (1.6-2.3) L 11/03/24 06:21
Triglycerides Cancelled 11/03/24 15:49
LDL Cholesterol, Calc Cancelled 11/03/24 15:49
VLDL Cholesterol, Calc Cancelled 11/03/24 15:49
HDL Cholesterol Cancelled 11/03/24 15:49
11/02/24
23:12
[id number] Pept 3440
Physical Exam
Constitutional: Other (more alert today and able to answer yes/no questions but could not name her doctors)
Cardiovascular: Rhythm & rate is regular and Pedal edema is absent
Respiratory: Respiratory effort normal and Lungs clear to auscul.
GI: Soft and Distention absent
Data Reviewed
-
Date of Service: November 07, 2024
EKG: Other (Tele review: No AFib/flutter/bradycardia)
[2024-11-07 11:05] VITALS: BP 125/62
[2024-11-07] MEDS: MEGACE ORAL SUSPENSION 800 MG PO (11:32)
[2024-11-07] MEDS: CYANOCOBALAMIN 1000 MCG IM (11:33)
[2024-11-07] MEDS: PEPCID 40 MG PO (11:34)
[2024-11-07] MEDS: LOW STRENGTH ASPIRIN 81 MG PO (11:35)
[2024-11-07] MEDS: DESENEX/MITRAZOL/ZEASORB 1 APPLIC TOPICAL ×2 (11:35→20:56)
[2024-11-07] MEDS: CELEXA 20 MG PO (11:35)
[2024-11-07 11:44] LABS: Glucose - Point of Care 102 mg/dl (70-99)
[2024-11-07] MEDS: PLAVIX 75 MG PO (13:35)
[2024-11-07 15:24] VITALS: BP 117/55
[2024-11-07 16:31] LABS: Glucose - Point of Care 106 mg/dl (70-99)
--- NOTE | 2024-11-07 16:47 | PN.CDI ---
CDI
- -
CDI:
Physician Documentation Request
Admit Date: 11/03/24 02:50
Dear Doctor Do,
Please review the following and provide your response in the progress notes.
Clinical Indicators:
Pt admitted with Change in MS/ found to have CVA
Documented per ED, 'She has a history of cognitive dysfunction...Daughter is concerned that she is not herself. She has had a change in mental status that is progressively gotten worse over the past couple months.....'
Documented per H&P, ' (somnolent, arousable to voice and speaks one word responses. ...GCS = 9)...the patient was extremely somnolent possibly encephalopathic for unclear etiology. ...Encephalopathy - Unlikely dementia given recent history of
normal mental status in June. ?UTI..'
Please specify the known or suspected type of the documented encephalopathy.
Metabolic Encephalopathy
Encephalopathy ruled out
Other ( please specify)
Use of terms such as suspected, likely, concern for, or probable (associated with a specific diagnosis that is being evaluated, monitored, or treated as if it exists) are acceptable and can be coded in the inpatient setting, when documented at the
time of discharge.
Thank you,
Martha Robertson RN
CDI Specialist
[facility]
Please use your independent medical judgment in providing your response.
--- NOTE | 2024-11-07 16:55 | PN.CDI ---
CDI
- -
CDI:
Physician Documentation Request
Admit Date: 11/03/24 02:50
Dear Doctor Do,
Please review the following and provide your response in the progress notes.
Clinical Indicators:
Pt admitted with Change in MS/ found to have CVA
Documented per Nursing wound care documentation 11/03, Present on admission bilateral buttock pressure injury related pressure injury stage 2 ...treatment provided barrier ointment...'
Physician documentation of the type and location of wounds is required for compliant documentation. Based on the above clinical findings and your assessment, please provide the following in your progress note:
1. Location of the ulcer/wound, including laterality.
2. Type (etiology) of ulcer/wound:
- Pressure (decubitus) ulcer
- Non-pressure ulcer
- Other
Use of terms such as suspected, likely, concern for, or probable (associated with a specific diagnosis that is being evaluated, monitored, or treated as if it exists) are acceptable and can be coded in the inpatient setting, when documented at the
time of discharge.
Thank you,
Martha Robertson RN
CDI Specialist
[facility]
Please use your independent medical judgment in providing your response.
*Source: National Pressure Ulcer Advisory Panel (NPUAP)
[2024-11-07] MEDS: LIPITOR 10 MG PO (19:20)
[2024-11-07] MEDS: LOVENOX 40 MG SC (19:21)
[2024-11-07] MEDS: XALATAN OPHTHALMIC SOLUTION 1 DROP OPHTH (19:22)
[2024-11-07 19:28] VITALS: BP 139/56
[2024-11-07 21:42] LABS: Glucose - Point of Care 138 mg/dl (70-99)
--- NOTE | 2024-11-07 21:48 | W.PN.UPDATE ---
Update Note
Progress Note Update
[id number] Asked to speak with daughter regarding changing code status.
Spoke with daughter Helen WEBB and she stated attending discussed code status today and after speaking with her brother they have decided to change code status to DNR. They would not want CPR or intubation if pt were to go into cardiac arrest. code
status updated.
[2024-11-07 23:02] VITALS: BP 134/61
[2024-11-08] VITALS (7 sets, daily range): BP systolic 112–146; BP diastolic 36–67; PULSE 76; O2SAT 96; BMI 25.8
[2024-11-08] MEDS: FIRVANQ 125 MG PO ×4 (00:11→17:44)
[2024-11-08] MEDS: SYNTHROID 50 MCG PO (06:16)
[2024-11-08 07:52] LABS: Glucose - Point of Care 113 mg/dl (70-99)
--- NOTE | 2024-11-08 09:15 | W.PN.HOSP.TC ---
Today's Communication/Plan
-
Consult hospice
Assessment / Plan
Assessment / Plan
Acute bihemispheric strokes, likely etiology�embolic
Acute metabolic encephalopathy
Change in mental status with rapid decline cognitively. Suspect related to CVA
MRI shows multiple foci of acute to subacute infarction perhaps occurring at different times. Differential is nonspecific demyelination.
Neurology input input noted.
Admitting EKG showed sinus rhythm. associate application developer raises concern for A-fib
Apprec cards input, not a candidate for ZARIA or loop recorder due to clinical status
Hemoglobin A1c 5.6.
Continue with PT/OT eval/tx - rec STR
Continue with aspirin and statin. Started plavix x 21 days
Appreciate palliative care input, recommend hospice�daughter is agreeable
Consult hospice, dtr would like pt to go back to LTAC on hospice
Probable UTI
-Urinalysis positive for Klebsiella pneumonia
-Status post Rocephin x 5 days
CAD/CHF - euvolemic in fact suspect more hypovolemia with diarrheal fluid losses and worsening hyponatremia. Check urine sodium and creatinine.
- continue aspirin statin for now
- no diuretics
-Echo shows EF of 35 to 40%. Moderate AR noted.
Obtain old information. Appreciate cardiology input
Diarrhea-patient had a history of 2 episodes of C. difficile per family. Currently C. difficile antigen is positive toxin negative but with clinical scenario of diarrhea and currently in need of antibiotics will start on vancomycin p.o.
Bradycardia - history of symptomatic bradycardia to 35 in june. No heart block on monitor and currently 55-60
-Continue with tele
- no blockers
- decline ppm in the past and family want to follow her then wishes
DM II
- hold farxiga
- insulin sliding scale for now
Hyponatremia
With diarrheal losses suspect for hypovolemia related. Check urine lites and depending we will supplement with IV fluids.
R knee laceration -
- monitor for dehiscence or infection
Present on admission bilateral buttock pressure injury related pressure injury stage 2
- continue wound care
Diet pureed diet, awaiting mouth plates
DVT PPX - lovenox sq
Code status - full code
Updated daughter on phone 11/07
Total time spent to see the patient on the floor, examine the patient, review data and lab results, discuss treatment plan with patient, nursing staff around 35 minutes.
Physical Exam
General: No acute distress
HEENT: Normocephalic, Atraumatic, EOMI, MMM
Respiratory: Clear to Auscultation bilaterally
Cardiac: Normal S1/S2, Regular Rate and Rhythm
GI: Soft, Nontender, Nondistended, Normal Bowel Sounds
Extremities: No Clubbing, Cyanosis, or Edema
Neuro: Not responding to questions
Psych: Calm, Cooperative
Derm: Bilateral buttock pressure injury related pressure injury stage 2
Anticipated Discharge: 24 - 48 hours
Subjective/Interval History
-
Date of Service: November 08, 2024
No acute events. No fever.
Objective Data
-
Vital Signs:
Vital Signs
Temp Pulse Resp BP Pulse Ox
97.8 F 66 20 141/60 97
11/08/24 07:55 11/08/24 07:55 11/08/24 07:55 11/08/24 07:55 11/08/24 07:55
I&O
11/07/24 11/08/24 11/09/24
06:59 06:59 06:59
Intake Total 600 / 600 170 / 170
Balance 600 / 600 170 / 170
--- NOTE | 2024-11-08 09:42 | W.CON.PAL ---
Consultation
-
Date/Time Consultation Requested: 11/07/2024
Date/Time Consultation Performed: 11/08/2024
Requesting Provider: Dr. Lopez
Performing Provider: Dr. Amin
Reason for Consult: Goals of Care Discussion
Primary Diagnosis: Multifocal CVA
Consult Requested By: Patient
Reason for Admission
Illness Course/HPI
Helen is a 79 y/o female, previously living independently, most recently became a resident of [facility] for LTC, but then after hospitalizations was recently at [facility] for rehab. admitted to hospital 11/03/2024 for falls, decline in overall
health.
PMHX of CH (EF 35-40%), HTN, GERD, CKD, DM, hx of PE, and significant recent decline since jun 2024. Had hospitalization at [facility] with bradycardia - patient declined pacemaker. Since then with issues with cdiff/diarrhea, hospitalized
with septic shock, and then transferred to rehab. Since then decline in function - wheelchair dependent, minimally communicative, dependant for care. reported to have 30 lb weight loss in past year. Decline in cognitive function.
Workup during this hospitalization revealed multiple embolic cvas. patient also on abx for uti, stage 2 wound, dysphagia diet.
Patient answered a few questions, but unable to meaningfully participate. spoke with daughter helen over the phone. daughter is a pediatric home hospice nurse. She reports that she and the rest of the family live closer to the [place] area, and
that they would prefer that patient not return to [facility] or [facility], but be closer to them.
Functional Status
Signfiicant declien in last 6 months, now bed-wheelchair bound, dorothy lift for transfers, dependant for all care.
Goals of Care Discussion
Patient Goals
Discussed hospice services, daughter in agreement.
Would need to search for LTC facility closer to [place] first
CODE status already updated to DNR
Pain & Symptom Assessment
-
patietn unable to provide ros
Objective Data
-
Objective Data:
Vital Signs
Temp Pulse Resp BP Pulse Ox
97.8 F 66 20 141/60 97
11/08/24 07:55 11/08/24 07:55 11/08/24 07:55 11/08/24 07:55 11/08/24 07:55
Laboratory Results
11/07/24 07:17
11/07/24 07:17
Hemoglobin A1c Cancelled 11/03/24 15:49
Ammonia < 9 umol/L (9-30) L 11/03/24 06:21
Total Protein 6.0 g/dl (6.3-8.2) L 11/05/24 07:02
Albumin 3.0 g/dl (3.5-5.0) L 11/05/24 07:02
Urine Color Yellow 11/06/24 10:12
Urine Clarity Clear (Clear) 11/06/24 10:12
Urine pH 6.0 (5.0-9.0) 11/06/24 10:12
Ur Specific [place] 1.025 (<1.030) 11/06/24 10:12
Urine Ketones Negative (Negative) 11/06/24 10:12
Urine Bilirubin Negative (Negative) 11/06/24 10:12
Palliative Performance Scale
Palliative Performance Scale:
PPS Level Ambulation Activity & Evidence of Disease Self Care Intake Conscious Level
100% Full Normal Activity & Work; Full Intake Full
No Evidence of Disease
90% Full Normal Activity & Work; Full Normal Full
Some Evidence of Disease
80% Full Normal Activity with Effort Full Normal or Full
Some Evidence of Disease Reduced
70% Reduced Unable Normal Job/Work Full Normal or Full
Significant Disease Reduced
60% Reduced Unable Hobby/Housework Occasional Normal or Full or Confusion
Significant Disease Assistance Reduced
50% Mainly Sit/Lie Unable to do Any Work Considerable Normal or Full or Confusion
Extensive Disease Assistance Req'd Reduced
40% Mainly in Bed Unable to do Most Activity Mainly Assistance Normal or Full or Drowsy;
Extensive Disease Reduced +/- Confusion
30% Totally Bed Unable to do Any Activity Total Care Normal or Full or Drowsy;
Bound Extensive Disease Reduced +/- Confusion
20% Totally Bed Bound Unable to do Any Activity Total Care Minimal to Full or Drowsy;
Extensive Disease Sips +/- Confusion
10% Totally Bed Bound Unable to do Any Activity Total Care Mouth Care Drowsy or Coma;
Extensive Disease Only +/- Confusion
0%
PPS Score Level:
Palliative Performance Score Response
Palliative Performance Score Response: 30%
Physical Exam
-
General: No Apparent Distress
Neuro: Awake
Psych: Confused
Assessment / Plan
-
Assessment/Plan:
Patient appropriate for hospice care, family in agreement.
Will need LTC facility near [place] with hospice services.
Updated attending and case management.
total time 90 mins including coordination of care, face to face with patient, review of chart, discussion with family
[2024-11-08] MEDS: NOVOLOG FLEXPEN-LOW RESISTANCE SC ×3 (09:59→17:33)
[2024-11-08] MEDS: PLAVIX 75 MG PO (10:03)
[2024-11-08] MEDS: CELEXA 20 MG PO (10:03)
[2024-11-08] MEDS: PEPCID 40 MG PO (10:03)
[2024-11-08] MEDS: LOW STRENGTH ASPIRIN 81 MG PO (10:04)
[2024-11-08] MEDS: MEGACE ORAL SUSPENSION 800 MG PO (10:04)
[2024-11-08] MEDS: CYANOCOBALAMIN 1000 MCG IM (10:04)
[2024-11-08] MEDS: DESENEX/MITRAZOL/ZEASORB 1 APPLIC TOPICAL ×2 (10:09→20:22)
[2024-11-08 11:26] LABS: Glucose - Point of Care 148 mg/dl (70-99)
--- NOTE | 2024-11-08 11:56 | CM ---
CM reviewed chart, per Dr. Amin, patient hospice appropriate. CM spoke with patients daughterHelen, looking [facility] facility [facility]. Daughter has experience with [facility], however, is agreeable to whichever hospice agency may
be preferred at facility. TT to Hospice, referral place. Daughter aware facility will require financial applications, referrals placed in [facility]. CM will continue to follow for all discharge planning needs.
Plan; LTC with Hospice, pending accepting facility.
[2024-11-08] MEDS: ULTRAM 50 MG PO (12:37)
[2024-11-08 17:24] LABS: Glucose - Point of Care 128 mg/dl (70-99)
[2024-11-08] MEDS: LOVENOX 40 MG SC (17:44)
[2024-11-08] MEDS: LIPITOR 10 MG PO (17:44)
[2024-11-08] MEDS: XALATAN OPHTHALMIC SOLUTION 1 DROP OPHTH (17:44)
[2024-11-08 21:22] LABS: Glucose - Point of Care 102 mg/dl (70-99)
[2024-11-09] MEDS: FIRVANQ 125 MG PO ×4 (00:25→17:15)
[2024-11-09 03:45] VITALS: BP 143/60
[2024-11-09 05:05] VITALS: BMI 25.4
[2024-11-09] MEDS: SYNTHROID 50 MCG PO (06:04)
[2024-11-09 07:25] VITALS: BP 140/55
[2024-11-09 07:49] LABS: Glucose - Point of Care 107 mg/dl (70-99)
[2024-11-09] MEDS: NOVOLOG FLEXPEN-LOW RESISTANCE SC ×2 (07:52→11:36)
[2024-11-09] MEDS: MEGACE ORAL SUSPENSION 800 MG PO (07:52)
[2024-11-09] MEDS: CELEXA 20 MG PO (07:53)
[2024-11-09] MEDS: LOW STRENGTH ASPIRIN 81 MG PO (07:53)
[2024-11-09] MEDS: PEPCID 40 MG PO (07:53)
[2024-11-09] MEDS: PLAVIX 75 MG PO (07:53)
[2024-11-09] MEDS: CYANOCOBALAMIN 1000 MCG IM (07:53)
[2024-11-09] MEDS: DESENEX/MITRAZOL/ZEASORB 1 APPLIC TOPICAL ×2 (07:58→20:53)
--- NOTE | 2024-11-09 09:23 | W.PN.HOSP.TC ---
Today's Communication/Plan
-
Awaiting placement at LTAC
Discharge to LTAC on hospice
Assessment / Plan
Assessment / Plan
Acute bihemispheric strokes, likely etiology�embolic
Acute metabolic encephalopathy
Change in mental status with rapid decline cognitively. Suspect related to CVA
MRI shows multiple foci of acute to subacute infarction perhaps occurring at different times. Differential is nonspecific demyelination.
Neurology input input noted.
Admitting EKG showed sinus rhythm. seam steamer raises concern for A-fib
Apprec cards input, not a candidate for ZARIA or loop recorder due to clinical status
Hemoglobin A1c 5.6.
Continue with PT/OT eval/tx - rec STR
Continue with aspirin and statin. Started plavix x 21 days
Appreciate palliative care input, recommend hospice�daughter is agreeable
Awaiting placement at LTAC
Discharge to LTAC on hospice
Probable UTI
-Urinalysis positive for Klebsiella pneumonia
-Status post Rocephin x 5 days
CAD/CHF - euvolemic in fact suspect more hypovolemia with diarrheal fluid losses and worsening hyponatremia. Check urine sodium and creatinine.
- continue aspirin statin for now
- no diuretics
-Echo shows EF of 35 to 40%. Moderate AR noted.
Obtain old information. Appreciate cardiology input
Diarrhea-patient had a history of 2 episodes of C. difficile per family. Currently C. difficile antigen is positive toxin negative but with clinical scenario of diarrhea and currently in need of antibiotics will start on vancomycin p.o.
Bradycardia - history of symptomatic bradycardia to 35 in june. No heart block on monitor and currently 55-60
-Continue with tele
- no blockers
- decline ppm in the past and family want to follow her then wishes
DM II
- Hold farxiga
- Discontinue Accu-Cheks, sliding scale insulin since patient will be discharged on hospice
Hyponatremia
With diarrheal losses suspect for hypovolemia related.
R knee laceration -
- monitor for dehiscence or infection
Present on admission bilateral buttock pressure injury related pressure injury stage 2
- continue wound care
Diet pureed diet, awaiting mouth plates
DVT PPX - lovenox sq
Code status - full code
Updated daughter on phone 11/07
Total time spent to see the patient on the floor, examine the patient, review data and lab results, discuss treatment plan with patient, nursing staff around 37 minutes.
Physical Exam
General: No acute distress
HEENT: Normocephalic, Atraumatic, EOMI, MMM
Respiratory: Clear to Auscultation bilaterally
Cardiac: Normal S1/S2, Regular Rate and Rhythm
GI: Soft, Nontender, Nondistended, Normal Bowel Sounds
Extremities: No Clubbing, Cyanosis, or Edema
Neuro: More responsive today
Psych: Calm, Cooperative
Derm: Bilateral buttock pressure injury related pressure injury stage 2
Anticipated Discharge: Within 24 hours
Subjective/Interval History
-
Date of Service: November 09, 2024
Patient is slightly more verbal today. She is tolerating her meals. No fever, no vomiting.
Objective Data
-
Vital Signs:
Vital Signs
Temp Pulse Resp BP Pulse Ox
98.2 F 58 18 140/55 98
11/09/24 07:25 11/09/24 07:25 11/09/24 07:25 11/09/24 07:25 11/09/24 07:25
I&O
11/08/24 11/09/24 11/10/24
06:59 06:59 06:59
Intake Total 170 / 170 480 / 480
Balance 170 / 170 480 / 480
--- NOTE | 2024-11-09 10:57 | PN.CDI ---
CDI
- -
CDI:
Physician Documentation Request
Admit Date: 11/03/24 02:50
Dear Doctor Do,
Please review the following and provide your response in the progress notes.
Clinical Indicators:
Pt admitted with CVA/Change in Mental Status Metabolic encephalopathy
Palliative consult, ' Significant decline in last 6 months, now bed-wheelchair bound, Lindsey lift for transfers, dependant for all care. '
Case management 11/04, ' per daughter- [facility] was not able to provide care patient needed. Daughter reports prior to [facility], patient was living in an apartment independently, recently sold apartment. Daughter reports patient is WC
bound...'
Per nutrition panel complete feeding
Rehab panel 11/03 note previous functional ability Dependent /ADL status OT Eating/Grooming/toileting/Upper extremity care/Lower extremity care Dependent /Bed mobility Dependent ..'
Please provide in your note the diagnosis associated with the patients current functional status:
Functional Quadriplegia- complete immobility due to severe physical disability or frailty
Weakness only
Other ( please specify)
Use of terms such as suspected, likely, concern for, or probable (associated with a specific diagnosis that is being evaluated, monitored, or treated as if it exists) are acceptable and can be coded in the inpatient setting, when documented at the
time of discharge.
Thank you,
Martha Robertson RN
CDI Specialist
[place] [facility]
Please use your independent medical judgment in providing your response.
[2024-11-09 11:27] VITALS: BP 143/64
[2024-11-09 11:35] LABS: Glucose - Point of Care 103 mg/dl (70-99)
[2024-11-09 15:23] VITALS: BP 131/61
[2024-11-09] MEDS: ULTRAM 50 MG PO (15:38)
[2024-11-09] MEDS: LOVENOX 40 MG SC (17:14)
[2024-11-09] MEDS: XALATAN OPHTHALMIC SOLUTION 1 DROP OPHTH (17:15)
[2024-11-09] MEDS: LIPITOR 10 MG PO (17:15)
--- NOTE | 2024-11-09 17:28 | CM ---
Pt has been accepted for transfer to [facility], [facility] (daughter will not consider, as pt has been there for LTC), and [facility].
CM will need to follow up with Helen's daughter to determine which facility she prefers; will need to coordinate transfer to SNF once choice is known.
[2024-11-09 19:10] VITALS: BP 142/59
[2024-11-09 23:03] VITALS: BP 136/59
[2024-11-10] MEDS: FIRVANQ 125 MG PO ×4 (00:48→18:51)
[2024-11-10 03:01] VITALS: BP 127/65
[2024-11-10 06:00] VITALS: BMI 26.4
[2024-11-10] MEDS: SYNTHROID 50 MCG PO (06:19)
[2024-11-10 08:00] VITALS: BP 113/59
--- NOTE | 2024-11-10 08:40 | W.PN.HOSP.TC ---
Today's Communication/Plan
-
Discharge to facility on hospice when bed available
Assessment / Plan
Assessment / Plan
#Acute bihemispheric strokes, likely etiology�embolic
#Acute metabolic encephalopathy
Change in mental status with rapid decline cognitively. Suspect related to CVA
MRI shows multiple foci of acute to subacute infarction perhaps occurring at different times. Differential is nonspecific demyelination.
Neurology input input noted.
Admitting EKG showed sinus rhythm. wildlife management professor raises concern for A-fib
Apprec cards input, not a candidate for ZARIA or loop recorder due to clinical status
Hemoglobin A1c 5.6.
Continue with PT/OT eval/tx - rec STR
Continue with aspirin and statin. Started plavix x 21 days
Appreciate palliative care input, recommend hospice�daughter is agreeable
Discharge to facility on hospice when bed available
Probable UTI
-Urinalysis positive for Klebsiella pneumonia
-Status post Rocephin x 5 days
CAD/CHF - euvolemic in fact suspect more hypovolemia with diarrheal fluid losses and worsening hyponatremia. Check urine sodium and creatinine.
- continue aspirin statin for now
- no diuretics
-Echo shows EF of 35 to 40%. Moderate AR noted.
Obtain old information. Appreciate cardiology input
Diarrhea-patient had a history of 2 episodes of C. difficile per family. Currently C. difficile antigen is positive toxin negative but with clinical scenario of diarrhea and currently in need of antibiotics, started on vancomycin p.o.
Bradycardia - history of symptomatic bradycardia to 35 in june. No heart block on monitor and currently 55-60
-Continue with tele
- no blockers
- decline ppm in the past and family want to follow her then wishes
DM II
- Hold farxiga
- Discontinued Accu-Cheks, sliding scale insulin since patient will be discharged on hospice
Hyponatremia
With diarrheal losses suspect for hypovolemia related.
R knee laceration -
- monitor for dehiscence or infection
Present on admission bilateral buttock pressure injury related pressure injury stage 2
- continue wound care
Diet pureed diet, awaiting mouth plates
DVT PPX - lovenox sq
Code status - full code
Updated daughter on phone 11/07
Total time spent to see the patient on the floor, examine the patient, review data and lab results, discuss treatment plan with patient, nursing staff around 35 minutes.
Physical Exam
General: No acute distress
HEENT: Normocephalic, Atraumatic, EOMI, MMM
Respiratory: Clear to Auscultation bilaterally
Cardiac: Normal S1/S2, Regular Rate and Rhythm
GI: Soft, Nontender, Nondistended, Normal Bowel Sounds
Extremities: No Clubbing, Cyanosis, or Edema
Neuro: More responsive today
Psych: Calm, Cooperative
Derm: Bilateral buttock pressure injury related pressure injury stage 2
Anticipated Discharge: Within 24 hours
Subjective/Interval History
-
Date of Service: November 10, 2024
No acute events. Patient is tolerating her diet. No fever, no vomiting.
Objective Data
-
Vital Signs:
Vital Signs
Temp Pulse Resp BP Pulse Ox
98.5 F 75 18 127/65 96
11/10/24 03:01 11/10/24 03:01 11/10/24 03:01 11/10/24 03:01 11/10/24 03:01
I&O
11/09/24 11/10/24 11/11/24
06:59 06:59 06:59
Intake Total 480 / 480 960 / 960
Balance 480 / 480 960 / 960
--- NOTE | 2024-11-10 09:24 | HOSPNOTE ---
Referral received. Patient is going to a facility in [place] with their preferred hospice as this is out of our service area. CM is updated and in agreement. Hospice will sign off.
[2024-11-10] MEDS: PLAVIX 75 MG PO (11:22)
[2024-11-10] MEDS: LOW STRENGTH ASPIRIN 81 MG PO (11:22)
[2024-11-10] MEDS: DESENEX/MITRAZOL/ZEASORB 1 APPLIC TOPICAL ×2 (11:23→21:17)
[2024-11-10] MEDS: MEGACE ORAL SUSPENSION 800 MG PO (11:31)
[2024-11-10] MEDS: PEPCID 40 MG PO (11:31)
[2024-11-10] MEDS: CYANOCOBALAMIN 1000 MCG IM (11:32)
[2024-11-10] MEDS: CELEXA 20 MG PO (11:37)
[2024-11-10 12:00] VITALS: BP 124/76
[2024-11-10] MEDS: ZOFRAN 4 MG IV (13:51)
[2024-11-10] MEDS: TYLENOL 650 MG PO (14:25)
--- NOTE | 2024-11-10 15:55 | CM ---
CM reviewed chart, patient seen bedside with daughter. CM discussed [facility] patient tomorrow for SNF with transition to LTC/hospice. Daughter aware and requesting PT/OT to see patient tomorrow, TT to PT, TT to Hospitalist with
update. CM will continue to follow for all discharge planning needs.
Plan; [facility] can accept tomorrow, will require ambulance transport.
[2024-11-10 16:10] VITALS: BP 115/53
[2024-11-10] MEDS: LIPITOR 10 MG PO (18:51)
[2024-11-10] MEDS: XALATAN OPHTHALMIC SOLUTION 1 DROP OPHTH (18:52)
[2024-11-10] MEDS: LOVENOX 40 MG SC (18:52)
[2024-11-10 23:10] VITALS: BP 143/62
[2024-11-11] MEDS: FIRVANQ 125 MG PO ×4 (00:18→17:14)
[2024-11-11] MEDS: SYNTHROID 50 MCG PO (05:34)
[2024-11-11 06:00] VITALS: BMI 25.4
[2024-11-11 08:00] VITALS: BP 131/74
--- NOTE | 2024-11-11 09:06 | W.PN.HOSP.TC ---
Addendum entered and electronically signed by Joaquim Lopez MD 11/21/24 14:46:
#Functional quadriplegia
Original Note:
Today's Communication/Plan
-
Discharge to short-term rehab.
Assessment / Plan
Assessment / Plan
#Acute bihemispheric strokes, likely etiology�embolic
#Acute metabolic encephalopathy
Change in mental status with rapid decline cognitively. Suspect related to CVA
MRI shows multiple foci of acute to subacute infarction perhaps occurring at different times. Differential is nonspecific demyelination.
Neurology input input noted.
Admitting EKG showed sinus rhythm. library monitor raises concern for A-fib
Apprec cards input, not a candidate for ZARIA or loop recorder due to clinical status
Hemoglobin A1c 5.6.
Continue with PT/OT eval/tx - rec STR
Continue with aspirin and statin. Started plavix x 21 days through 11/27/24, then stop.
Appreciate palliative care input, recommend hospice�daughter is agreeable
Daughter wishes patient to go to short-term rehab, then transition to hospice
Vomiting
� Self-limiting, resolved
Probable UTI
-Urinalysis positive for Klebsiella pneumonia
-Status post Rocephin x 5 days
CAD/CHF - euvolemic in fact suspect more hypovolemia with diarrheal fluid losses and worsening hyponatremia. Check urine sodium and creatinine.
- continue aspirin statin for now
- no diuretics
-Echo shows EF of 35 to 40%. Moderate AR noted.
Obtain old information. Appreciate cardiology input
Diarrhea-patient had a history of 2 episodes of C. difficile per family. Currently C. difficile antigen is positive toxin negative but with clinical scenario of diarrhea and currently in need of antibiotics, on oral vancomycin while in the
hospital, will discontinue.
Bradycardia - history of symptomatic bradycardia to 35 in june. No heart block on monitor and currently 55-60
-Continue with tele
- no blockers
- decline ppm in the past and family want to follow her then wishes
DM II
- Hold farxiga
- Discontinued Accu-Cheks, sliding scale insulin since patient will be discharged on hospice
Hyponatremia
With diarrheal losses suspect for hypovolemia related.
R knee laceration -
- monitor for dehiscence or infection
Present on admission bilateral buttock pressure injury related pressure injury stage 2
- continue wound care
Diet pureed diet, awaiting mouth plates
DVT PPX - lovenox sq
Code status - full code
Updated daughter on phone 11/10
Physical Exam
General: No acute distress
HEENT: Normocephalic, Atraumatic, EOMI, MMM
Respiratory: Clear to Auscultation bilaterally
Cardiac: Normal S1/S2, Regular Rate and Rhythm
GI: Soft, Nontender, Nondistended, Normal Bowel Sounds
Extremities: No Clubbing, Cyanosis, or Edema
Neuro: More responsive today
Psych: Calm, Cooperative
Derm: Bilateral buttock pressure injury related pressure injury stage 2
Anticipated Discharge: Today
Subjective/Interval History
-
Date of Service: November 11, 2024
No acute events overnight. Patient is awake and alert, talking today. No fever. Vomiting resolved.
Objective Data
-
Vital Signs:
Vital Signs
Temp Pulse Resp BP Pulse Ox
98.3 F 70 18 143/62 96
11/10/24 23:10 11/10/24 23:10 11/10/24 23:10 11/10/24 23:10 11/10/24 23:10
I&O
11/10/24 11/11/24 11/12/24
06:59 06:59 06:59
Intake Total 960 / 960
Output Total 100 / 100
Balance 960 / 960 -100 / -100
[2024-11-11] MEDS: CELEXA 20 MG PO (11:12)
[2024-11-11] MEDS: MEGACE ORAL SUSPENSION 800 MG PO (11:12)
[2024-11-11] MEDS: PLAVIX 75 MG PO (11:12)
[2024-11-11] MEDS: PEPCID 40 MG PO (11:12)
[2024-11-11] MEDS: LOW STRENGTH ASPIRIN 81 MG PO (11:12)
[2024-11-11] MEDS: CYANOCOBALAMIN 1000 MCG IM (11:12)
--- NOTE | 2024-11-11 14:17 | CM ---
Addendum entered by Barbara Mendiola 11/11/24 15:02:
Patient seen bedside with daughter and son in law, IMM reviewed, signed, placed in chart, provided with copy and medical release form.
Original Note:
CM reviewed chart, spoke with Whitney in admissions as [facility] and [facility], both facilities can offer patient a bed. Daughter Helen gr [place]- agreeable to discharge , patient plan to [facility], 5:00 p.m. ambulance
transport. Daughter will be at hospital shortly. CM will continue to follow for all discharge planning needs.
Plan; [facility], 5:00 p.m. ambulance transport
Report: [phone]
[2024-11-11 16:00] VITALS: BP 131/72
--- NOTE | 2024-11-11 17:03 | W.DCSUMMARY ---
Discharge Summary
Discharge Data
Date of Admission: 11/03/24
Date of Discharge: 11/11/24
-
Pending Results: No
Hospital Course
Discharge diagnosis:
Acute bihemispheric strokes, concerning for embolic in etiology
Acute metabolic encephalopathy
Vomiting
Acute urinary tract infection
Chronic heart failure
Coronary artery disease
Diarrhea
Bradycardia
Diabetes
Hyponatremia
Right knee laceration
Bilateral buttock pressure injury present on admission
Consults: Neurology, cardiology
Brain MRI:
As described, there are multiple foci of increased diffusion-weighted signal, most of which have decreased ADC signal. Some of these foci of increased diffusion-weighted signal do not have decreased ADC signal.
Findings are most suggestive of multiple foci of acute to subacute infarction, perhaps occurring at different times, within an overall subacute timeframe.
Main differential consideration would be focal areas of nonspecific demyelination, of uncertain etiology.
Atrophy. Callosal angle appears normal, and findings are not considered highly suggestive of normal pressure hydrocephalus.
Partially empty sella. This is often an incidental finding of no clinical significance, although it does have an association with idiopathic intracranial hypertension. Many patients are asymptomatic and endocrinologically normal, although with some
increasing reports of variable hypopituitarism and hyperprolactinemia.
Echo:
Mildly dilated left ventricle with global hypokinesis and moderately reduced
left ventricular function
Estimated ejection fraction 35 to 40%
Moderate aortic regurgitation.
On some views there was a density towards the left ventricular apex. Possible
artifact cannot exclude thrombus. Would recommend additional imaging with
contrast to further assess left ventricular apex.
No prior study for comparison
Carotid US:
Right carotid: Minimal calcified plaque within the bulb. Any stenosis is less than 50% based upon velocity criteria.
Left carotid: Minimal noncalcified plaque within the bulb. Any stenosis is less than 50% based upon velocity criteria.
Antegrade flow within both vertebral arteries.
Hospital course:
79-year-old female with a past medical history of CHF, hypertension, GERD, CKD, diabetes, and hypothyroidism who was sent from [facility] rehab for worsening dysphagia, worsening cognition, and a mechanical fall. She has had multiple mechanical
falls recently, and progressive cognitive decline.
Patient was seen in conjunction with neurology. Brain MRI confirmed multiple foci of acute to subacute infarction, occurring at different times, overall within subacute timeframe. Patient was continued on her aspirin 81 mg. Her LDL was at goal at
48, she was continued on her atorvastatin 10 mg daily. Neurology recommends Plavix 75 mg for 21 days through 11/27/2024. Her hemoglobin A1c was normal.
Patient's stroke was concerning for atrial fibrillation, since it appeared embolic in nature. Patient was seen in conjunction with cardiology. Echocardiogram was negative for thrombus or embolic source. Per cardiology, patient is not a candidate
for ZARIA or loop monitor. Cardiology recommends conservative management.
Patient has dysphagia, she was seen in conjunction with speech pathologist. She tolerated her pur�ed diet with thin liquids.
Patient's daughter understands that her condition is progressive, and that she will likely continue to decline. Patient was seen in conjunction with palliative care, who agrees that she is hospice appropriate. Daughter wishes patient to go to
short term rehab, then transition to hospice.
Disposition: Short term rehab
Discharge planning: Required 37 minutes
Discharge Plan
-
Patient Disposition: Long-Term/SNF
Discharge Diagnosis/Procedures: Stroke, confusion, dysphagia, urinary tract infection, coronary artery disease
Condition: Serious
Additional Diets: Pureed diet, Boost Protein Shake BID
Activity: As tolerated
Other Services: Hospice
Activity Restrictions/Additional Instructions:
Take plavix 75 mg daily through 11/27/2024, then stop.
Referrals:
Jamin Velasquez, [Family Provider] - in one week
Prescriptions:
New
miconazole nitrate [Miconazorb AF] 2 % Powder
1 applic topical BID Qty: 0 0RF
clopidogrel 75 mg Tablet
75 mg PO DAILY 18 Days Qty: 18 0RF
tramadol 50 mg Tablet
50 mg PO Q6HPRN PRN (Reason: MODERATE PAIN) Qty: 4 0RF
atorvastatin 10 mg tablet
10 mg PO DAILY Qty: 30 0RF
Continued
acetaminophen [Tylenol] 325 mg Tablet
650 mg PO Q6HPRN PRN (Reason: mild pain)
trazodone 50 mg Tablet
50 mg PO HSPRN PRN (Reason: sleep)
famotidine [Pepcid] 40 mg Tablet
40 mg PO DAILY
melatonin 3 mg Tablet
3 mg PO HS
aspirin 81 mg Tablet,Delayed Release (Dr/Ec)
81 mg PO DAILY
citalopram [Celexa] 20 mg Tablet
20 mg PO DAILY
magnesium oxide [MagOx] 400 mg (241.3 mg magnesium) Tablet
400 mg PO DAILY
magnesium hydroxide [Milk of Magnesia] 400 mg/5 mL Suspension
2,400 mg PO DAILYPRN PRN (Reason: if no bm by 3rd day)
levothyroxine [Synthroid] 50 mcg Tablet
50 mcg PO DAILY
bisacodyl [Dulcolax (bisacodyl)] 10 mg Suppository
10 mg MI DAILYPRN PRN (Reason: if no bm aftr mom)
Fleet Enema 19-7 gram/118 mL Enema
118 ml MI DAILYPRN PRN (Reason: if no bm aftr duloclax)
gabapentin 300 mg Capsule
300 mg PO HS
nystatin 100,000 unit/gram Powder
1 applic TOPICAL QID
Lumigan 0.01 % Drops
1 drp BOTH EYES HS
megestrol 800 mg/20 mL (20 mL) Suspension
200 mg PO QID
dapagliflozin propanediol [Farxiga] 10 mg Tablet
10 mg PO DAILY
Discontinued
atorvastatin [Lipitor] 10 mg Tablet
10 mg PO HS
sodium chloride 1 gram Tablet
1,000 mg PO DAILY
oxycodone-acetaminophen 5-325 mg Tablet
1 tab PO Q6HPRN PRN (Reason: severe pain)
lorazepam 0.5 mg Tablet
0.5 mg PO DAILYPRN PRN (Reason: anixety)
valsartan 160 mg Tablet
160 mg PO BID
Discharge Orders:
Discharge Patient (As Directed); Ordered 11/11/24
Ordered By: Joaquim Lopez
Discharge Date and Time
Discharge Date/Time: 11/11/24 18:01
Print Language: BAHRAINI
[2024-11-11] MEDS: DESENEX/MITRAZOL/ZEASORB 1 APPLIC TOPICAL (17:13)
[2024-11-11] MEDS: LOVENOX 40 MG SC (17:14)
[2024-11-11] MEDS: LIPITOR 10 MG PO (17:14)
[2024-11-11] MEDS: XALATAN OPHTHALMIC SOLUTION 1 DROP OPHTH (17:41)
== END 2024-11-11 18:01 | disposition hospice, inpatient (51) | DRG 64 ==
LOC: 4 WEST ACU 02:50
PROVIDERS: Internal Medicine; Physician Assistant; ADMITTING PHYSICIAN Internal Medicine; ATTENDING PHYSICIAN Family Medicine; CONSULT PHYSICIAN Internal Medicine Hospice and Palliative Medicine; CONSULT PHYSICIAN Psychiatry & Neurology Neurology; EMERGENCY PHYSICIAN Emergency Medicine; FAMILY PHYSICIAN Internal Medicine; OTHER PHYSICIAN Internal Medicine Cardiovascular Disease
PROC: 0HQKXZZ Repair Right Lower Leg Skin, External Approach (ICD-10-PCS; 2024-11-03)
DX: I63.40 Cerebral infarction due to embolism of unspecified cerebral artery (principal); G93.41 Metabolic encephalopathy; R53.2 Functional quadriplegia; I13.0 Hypertensive heart and chronic kidney disease with heart failure and stage 1 through stage 4 chronic kidney disease, or unspecified chronic kidney disease; I50.22 Chronic systolic (congestive) heart failure; N39.0 Urinary tract infection, site not specified; E87.1 Hypo-osmolality and hyponatremia; I42.9 Cardiomyopathy, unspecified; Z66 Do not resuscitate; Z51.5 Encounter for palliative care; S81.811A Laceration without foreign body, right lower leg, initial encounter; E11.22 Type 2 diabetes mellitus with diabetic chronic kidney disease; N18.9 Chronic kidney disease, unspecified; I25.10 Atherosclerotic heart disease of native coronary artery without angina pectoris; B96.1 Klebsiella pneumoniae [K. pneumoniae] as the cause of diseases classified elsewhere; E03.9 Hypothyroidism, unspecified; E78.00 Pure hypercholesterolemia, unspecified; E53.8 Deficiency of other specified B group vitamins; R19.7 Diarrhea, unspecified; L89.322 Pressure ulcer of left buttock, stage 2; L89.312 Pressure ulcer of right buttock, stage 2; F41.1 Generalized anxiety disorder; I49.5 Sick sinus syndrome; I49.3 Ventricular premature depolarization; R29.6 Repeated falls; R62.7 Adult failure to thrive; W05.0XXA Fall from non-moving wheelchair, initial encounter; Z88.2 Allergy status to sulfonamides; Z87.891 Personal history of nicotine dependence; Z86.711 Personal history of pulmonary embolism; Z79.899 Other long term (current) drug therapy; Z79.82 Long term (current) use of aspirin; Z79.84 Long term (current) use of oral hypoglycemic drugs; Z79.890 Hormone replacement therapy; Z99.3 Dependence on wheelchair
CPT/HCPCS: 12004; 70450; 70551; 80048; 80053; 80061; 81003; 81015; 82140; 82570; 82607; 82962; 83036; 83735; 83880; 83935; 84300; 84443; 85025; 85027; 85652; 86140; 86780; 87070; 87077; 87086; 87186; 87324; 87449; 93005; 93306; 93880; 96361; 96374; 97112; 97163; 97167; 97530; 99285; Q9950